=== PATIENT | female | born 1940 | race Caucasian/White ===

== ENCOUNTER 2023-08-10 09:43 | Outpatient (RCR) | payer MEDICARE, SELFPAY | END 2023-08-10 23:59 | disposition home or self-care (01) | LOC: ROT 09:43 | PROVIDERS: ATTENDING PHYSICIAN Internal Medicine | DX: I69.390 Apraxia following cerebral infarction (principal); I69.320 Aphasia following cerebral infarction; R41.89 Other symptoms and signs involving cognitive functions and awareness; I69.398 Other sequelae of cerebral infarction; Z73.6 Limitation of activities due to disability | CPT/HCPCS: 92507; 97530; 97535 ==

== ENCOUNTER 2023-09-07 07:22 | Outpatient (RCR) | payer MEDICARE, SELFPAY | END 2023-09-07 23:59 | disposition home or self-care (01) | LOC: ROT 07:22 | PROVIDERS: ATTENDING PHYSICIAN Internal Medicine | DX: I69.390 Apraxia following cerebral infarction (principal); I69.320 Aphasia following cerebral infarction; R41.89 Other symptoms and signs involving cognitive functions and awareness; Z73.6 Limitation of activities due to disability | CPT/HCPCS: 92507; 97530 ==

== ENCOUNTER → 2023-09-08 06:34 | Outpatient (REF) | payer MEDICARE, SELFPAY ==
[2023-09-08 07:35] LABS: % Eosinophils 4.4 % (0-6); % Immature Granulocytes 0.2 % (0-0.5); % Lymphocytes 31.3 % (20.5-51.1); % Monocytes 10.8 % (1.7-9.3); % Neutrophils 52.3 % (42.2-75.2); Absolute Eosinophils 0.2 10^3/uL (0-0.7); Absolute Lymphocytes 1.3 10^3/uL (1.2-3.4); Absolute Monocytes 0.4 10^3/uL (0.1-0.6); Absolute Neutrophils 2.1 10^3/uL (1.4-6.5); Hematocrit 43.3 % (37.0-47.0); Mean Corp Hgb Conc. 32.3 g/dL (33.0-37.0); Mean Corpuscular Hgb 29.4 pg (27.0-31.0); Mean Corpuscular Volume 90.8 fL (81.0-99.0); Mean Platelet Volume 11.6 fL (7.4-10.4); Nucleated Red Blood Cells % 0 %; Platelet Count 184 10^3/uL (130-400); Red Blood Cell Count 4.77 10^6/uL (4.20-5.40); Red Cell Dist. Width 13.3 % (11.5-14.5); White Blood Cell Count 4.1 10^3/uL (4.8-10.8)
[2023-09-08 08:14] LABS: ALT (SGPT) 13 U/L (0-35); AST (SGOT) 22 U/L (14-36); Albumin 4.3 g/dl (3.5-5.0); Alkaline Phosphatase 68 U/L (38-126); Blood Urea Nitrogen 18 mg/dl (7-17); Calcium 9.1 mg/dl (8.4-10.2); Carbon Dioxide 27 mmol/L (22-30); Chloride 105 mmol/L (98-107); Glucose 103 mg/dl (70-99); HDL Cholesterol 50 mg/dl; LDL Cholesterol, Calculated 92 mg/dl; Potassium 4.1 mmol/L (3.5-5.1); Sodium 138 mmol/L (135-145); Total Bilirubin 1.2 mg/dl (0.2-1.3); Total Cholesterol 178 mg/dl (50-199); Triglyceride 183 mg/dl (10-149); Very Low Density Lipoprotein 36 mg/dl (0-30); eGFR > 60.00
[2023-09-08 08:34] LABS: TSH Reflex To Free T4 2.79 uIU/ml (0.47-4.68)
== END ==
LOC: WDC 06:34
PROVIDERS: ATTENDING PHYSICIAN Family Medicine
DX: Z12.31 Encounter for screening mammogram for malignant neoplasm of breast (principal); Z86.73 Personal history of transient ischemic attack (TIA), and cerebral infarction without residual deficits; R53.83 Other fatigue; R73.01 Impaired fasting glucose; E78.2 Mixed hyperlipidemia; E03.9 Hypothyroidism, unspecified; E78.5 Hyperlipidemia, unspecified
CPT/HCPCS: 36415; 77063; 77067; 80053; 80061; 83036; 84443; 85025

== ENCOUNTER 2023-10-05 07:36 | Outpatient (RCR) | payer MEDICARE, SELFPAY | END 2023-10-05 23:59 | disposition home or self-care (01) | LOC: ROT 07:36 | PROVIDERS: ATTENDING PHYSICIAN Internal Medicine | DX: I69.328 Other speech and language deficits following cerebral infarction (principal); Z73.6 Limitation of activities due to disability; I69.390 Apraxia following cerebral infarction; I69.320 Aphasia following cerebral infarction | CPT/HCPCS: 92507; 97530; 97535 ==

== ENCOUNTER 2023-10-20 08:40 | Outpatient (RCR) | payer MEDICARE, SELFPAY | END 2023-10-20 23:59 | disposition home or self-care (01) | LOC: ROT 08:40 | PROVIDERS: ATTENDING PHYSICIAN Internal Medicine | DX: I69.328 Other speech and language deficits following cerebral infarction (principal); Z73.6 Limitation of activities due to disability; I69.390 Apraxia following cerebral infarction; I69.320 Aphasia following cerebral infarction; I69.318 Other symptoms and signs involving cognitive functions following cerebral infarction; I69.312 Visuospatial deficit and spatial neglect following cerebral infarction | CPT/HCPCS: 92507; 97530 ==

== ENCOUNTER → 2023-10-28 07:16 | Outpatient (REF) | payer MEDICARE, SELFPAY ==
[2023-10-28 08:09] LABS: % Basophils 0.9 % (0-2); % Eosinophils 5.1 % (0-6); % Immature Granulocytes 0.2 % (0-0.5); % Lymphocytes 23.7 % (20.5-51.1); % Neutrophils 60.1 % (42.2-75.2); Absolute Eosinophils 0.2 10^3/uL (0-0.7); Absolute Lymphocytes 1.1 10^3/uL (1.2-3.4); Absolute Monocytes 0.5 10^3/uL (0.1-0.6); Absolute Neutrophils 2.7 10^3/uL (1.4-6.5); Hematocrit 42.9 % (37.0-47.0); Hemoglobin 13.9 g/dL (12.0-16.0); Mean Corp Hgb Conc. 32.4 g/dL (33.0-37.0); Mean Corpuscular Hgb 29.3 pg (27.0-31.0); Mean Corpuscular Volume 90.3 fL (81.0-99.0); Mean Platelet Volume 10.8 fL (7.4-10.4); Nucleated Red Blood Cells % 0 %; Platelet Count 189 10^3/uL (130-400); Red Blood Cell Count 4.75 10^6/uL (4.20-5.40); Red Cell Dist. Width 13.5 % (11.5-14.5); White Blood Cell Count 4.5 10^3/uL (4.8-10.8)
[2023-10-28 09:45] LABS: ALT (SGPT) 12 U/L (0-35); AST (SGOT) 21 U/L (14-36); Albumin 4.3 g/dl (3.5-5.0); Alkaline Phosphatase 63 U/L (38-126); Blood Urea Nitrogen 16 mg/dl (7-17); Calcium 9.1 mg/dl (8.4-10.2); Carbon Dioxide 27 mmol/L (22-30); Chloride 105 mmol/L (98-107); Glucose 93 mg/dl (70-99); Sodium 137 mmol/L (135-145); Total Bilirubin 1.4 mg/dl (0.2-1.3); Total Protein 6.8 g/dl (6.3-8.2); eGFR > 60.00
[2023-10-28 09:57] LABS: Potassium 4.6 mmol/L (3.5-5.1)
== END ==
LOC: REG 07:16
PROVIDERS: ATTENDING PHYSICIAN Registered Nurse
DX: T78.3XXD Angioneurotic edema, subsequent encounter (principal); I10 Essential (primary) hypertension
CPT/HCPCS: 36415; 80053; 85025; 86160

== ENCOUNTER 2023-11-12 09:26 | Outpatient (RCR) | payer MEDICARE, SELFPAY | END 2023-11-24 14:37 | disposition home or self-care (01) | LOC: ROT 09:26 | PROVIDERS: ATTENDING PHYSICIAN Internal Medicine | DX: I69.328 Other speech and language deficits following cerebral infarction (principal); Z73.6 Limitation of activities due to disability; I69.390 Apraxia following cerebral infarction; I69.320 Aphasia following cerebral infarction; I69.318 Other symptoms and signs involving cognitive functions following cerebral infarction; I69.312 Visuospatial deficit and spatial neglect following cerebral infarction | CPT/HCPCS: 92507; 97535 ==

== ENCOUNTER → 2023-12-08 06:41 | Outpatient (REF) | payer MEDICARE, SELFPAY ==
[2023-12-08 07:30] LABS: % Basophils 0.9 % (0-2); % Eosinophils 5.5 % (0-6); % Immature Granulocytes 0.2 % (0-0.5); % Lymphocytes 29.5 % (20.5-51.1); % Monocytes 10.5 % (1.7-9.3); % Neutrophils 53.4 % (42.2-75.2); Absolute Eosinophils 0.2 10^3/uL (0-0.7); Absolute Lymphocytes 1.3 10^3/uL (1.2-3.4); Absolute Monocytes 0.5 10^3/uL (0.1-0.6); Absolute Neutrophils 2.4 10^3/uL (1.4-6.5); Hematocrit 42.6 % (37.0-47.0); Mean Corp Hgb Conc. 32.9 g/dL (33.0-37.0); Mean Corpuscular Volume 88.2 fL (81.0-99.0); Mean Platelet Volume 11.3 fL (7.4-10.4); Nucleated Red Blood Cells % 0 %; Platelet Count 167 10^3/uL (130-400); Red Blood Cell Count 4.83 10^6/uL (4.20-5.40); Red Cell Dist. Width 13.5 % (11.5-14.5); White Blood Cell Count 4.4 10^3/uL (4.8-10.8)
[2023-12-08 07:48] LABS: ALT (SGPT) 11 U/L (0-35); AST (SGOT) 21 U/L (14-36); Albumin 4.2 g/dl (3.5-5.0); Alkaline Phosphatase 65 U/L (38-126); Blood Urea Nitrogen 17 mg/dl (7-17); Calcium 9.4 mg/dl (8.4-10.2); Carbon Dioxide 27 mmol/L (22-30); Chloride 104 mmol/L (98-107); Glucose 97 mg/dl (70-99); HDL Cholesterol 49 mg/dl; LDL Cholesterol, Calculated 83 mg/dl; Potassium 3.9 mmol/L (3.5-5.1); Sodium 142 mmol/L (135-145); Total Bilirubin 1.4 mg/dl (0.2-1.3); Total Cholesterol 164 mg/dl (50-199); Total Protein 6.8 g/dl (6.3-8.2); Triglyceride 160 mg/dl (10-149); Very Low Density Lipoprotein 32 mg/dl (0-30); eGFR > 60.00
[2023-12-08 08:43] LABS: TSH Reflex To Free T4 3.43 uIU/ml (0.47-4.68)
== END ==
LOC: REG 06:41
PROVIDERS: ATTENDING PHYSICIAN Family Medicine
DX: T78.3XXD Angioneurotic edema, subsequent encounter (principal); R53.83 Other fatigue; R73.01 Impaired fasting glucose; E78.2 Mixed hyperlipidemia; E03.9 Hypothyroidism, unspecified
CPT/HCPCS: 36415; 80053; 80061; 83036; 84443; 85025

== ENCOUNTER → 2024-03-16 14:17 | Outpatient (REF) | payer MEDICARE, SELFPAY | LOC: RAD 14:17 | PROVIDERS: ATTENDING PHYSICIAN Nurse Practitioner Adult Health | DX: M79.662 Pain in left lower leg (principal) | CPT/HCPCS: 93971 ==

== ENCOUNTER → 2024-04-14 06:24 | Outpatient (REF) | payer MEDICARE, SELFPAY ==
[2024-04-14 07:04] LABS: % Basophils 1.4 % (0-2); % Immature Granulocytes 0.2 % (0-0.5); % Lymphocytes 29.6 % (20.5-51.1); % Monocytes 9.7 % (1.7-9.3); % Neutrophils 54.1 % (42.2-75.2); Absolute Basophils 0.1 10^3/uL (0-0.2); Absolute Eosinophils 0.3 10^3/uL (0-0.7); Absolute Lymphocytes 1.5 10^3/uL (1.2-3.4); Absolute Monocytes 0.5 10^3/uL (0.1-0.6); Absolute Neutrophils 2.7 10^3/uL (1.4-6.5); Hematocrit 45.4 % (37.0-47.0); Hemoglobin 14.8 g/dL (12.0-16.0); Mean Corp Hgb Conc. 32.6 g/dL (33.0-37.0); Mean Corpuscular Hgb 28.2 pg (27.0-31.0); Mean Corpuscular Volume 86.6 fL (81.0-99.0); Mean Platelet Volume 10.9 fL (7.4-10.4); Nucleated Red Blood Cells % 0 %; Platelet Count 203 10^3/uL (130-400); Red Blood Cell Count 5.24 10^6/uL (4.20-5.40)
[2024-04-14 07:41] LABS: ALT (SGPT) 15 U/L (0-35); AST (SGOT) 21 U/L (14-36); Albumin 4.6 g/dl (3.5-5.0); Alkaline Phosphatase 68 U/L (38-126); Blood Urea Nitrogen 18 mg/dl (7-17); Calcium 9.4 mg/dl (8.4-10.2); Carbon Dioxide 27 mmol/L (22-30); Chloride 102 mmol/L (98-107); Glucose 116 mg/dl (70-99); HDL Cholesterol 53 mg/dl; LDL Cholesterol, Calculated 96 mg/dl; Potassium 4.3 mmol/L (3.5-5.1); Sodium 141 mmol/L (135-145); Total Bilirubin 1.2 mg/dl (0.2-1.3); Total Cholesterol 187 mg/dl (50-199); Triglyceride 194 mg/dl (10-149); Very Low Density Lipoprotein 38 mg/dl (0-30); eGFR > 60.00
[2024-04-14 08:21] LABS: Glycohemoglobin (HgbA1c) 5.9 % (4.0-5.6)
[2024-04-14 08:24] LABS: Vitamin D, 25-OH*** 22.2 ng/mL (30-80)
[2024-04-14 08:38] LABS: TSH Reflex To Free T4 3.41 uIU/ml (0.47-4.68)
[2024-04-14 08:57] LABS: Vitamin B12 963 pg/ml (239-931)
== END ==
LOC: REG 06:24
PROVIDERS: ATTENDING PHYSICIAN Registered Nurse; FAMILY PHYSICIAN Family Medicine; REFERRING PHYSICIAN Nurse Practitioner Adult Health
DX: R73.01 Impaired fasting glucose (principal); E78.2 Mixed hyperlipidemia; I10 Essential (primary) hypertension; R53.83 Other fatigue; Z79.899 Other long term (current) drug therapy; Z13.29 Encounter for screening for other suspected endocrine disorder; Z51.81 Encounter for therapeutic drug level monitoring
CPT/HCPCS: 36415; 80053; 80061; 82306; 82607; 83036; 84443; 85025

== ENCOUNTER 2024-08-27 12:56 | Inpatient (IN) | payer MEDICARE, SELFPAY ==
[2024-08-24 21:46] LABS: Glucose - Point of Care 113 mg/dl (70-99)
[2024-08-24 21:47] VITALS: BP 186/94
--- NOTE | 2024-08-24 21:56 | ED.CVA ---
History of Present Illness
General
Chief Complaint: CVA/TIA Symptoms
Source: patient, records and spouse
Exam Limitations: clinical condition
Time Seen by Provider: 08/24/24 21:49
Nursing documentation reviewed up to this point in time: agreed with
Onset of Stroke Symptoms
Onset of symptoms known: Yes
Date of onset of symptoms: 08/24/24
Time of onset of symptoms: 20:30
History of Present Illness
History of Present Illness:
84-year-old female with a past medical history of hyperlipidemia, multiple prior strokes, hypothyroidism who presents to the emergency room with her for evaluation of speech disturbance. Patient cannot meaningfully participate in history
because she is having expressive aphasia. Her is at bedside and provides collateral history. She has a history of multiple prior strokes. She is on aspirin and Plavix. Tonight they were watching TV at around 8:30 PM and she had rather
abrupt onset of expressive aphasia. says that while she was trying to speak the words were gibberish. He says that she also seemed to be having issues with her balance. He did not note any facial droop, patient seems to deny any change in
vision. No weakness or numbness in the arms or the legs. notes that she has been dealing with pain in her back and is following with orthopedist with plan for a MRI upcoming; she has been taking tramadol for the past few days for her pain;
she did take a dose tonight. says that she took her dose either right before or shortly after onset of her speech issues--he is not really sure.
Past History
Past History
ED Past Medical History: CVA, GERD, Hypercholesterolemia, Hypothyroidism and Psychiatric
ED Past Surgical History: Appendectomy, Cholecystectomy and Gynecological
Social History
Tobacco: Non-smoker
Alcohol: Occasional
Drug: None
Personal:
Living: with family
Employment: Retired
Family History
Family History: Other (Noncontributory)
Review of Systems
Review of Systems
Unable to obtain full review of systems at this time due to: other (Aphasia)
All Other Systems: Not applicable
Phy Exam
Physical Exam
Physical Exam:
General: Awake, alert, anxious appearing
Head: Normocephalic, atraumatic
Eyes: Conjunctiva normal, EOMI, pupils equal round reactive to light bilaterally
Throat: Airway intact, handling secretions
Neck: Trachea midline, supple without meningismus
Lungs: Clear to auscultation bilaterally, no wheezing, rales, rhonchi
Heart: Tachycardia with regular rhythm, no murmurs, gallops, or rubs
Neuro: Cranial nerves intact, patient has fluent speech without dysarthria but is having expressive aphasia; motor and sensory intact in all extremities, no limb ataxia
Extremities: No edema in extremities, equal pulses in all extremities
Scores
NIH Stroke Score
Level of Consciousness: 0 - Alert
LOC Questions: 1-Answers one correctly
LOC Commands: 0-Performs both correctly
Best Horizontal Gaze: 0-Normal
Visual [place]: 0=Normal, no visual loss
Facial Palsy: 0=Normal, symmetrical
Motor - Right Arm: 0=No drift 10 seconds
Motor - Left Arm: 0=No drift 10 seconds
Motor - Right Le-No drift 5 seconds
Motor - Left Le-No drift 5 seconds
Limb Ataxia: 0-Absent
Sensation: 0-Normal
Best Language: 1-Mild aphasia
Dysarthria: 0-Normal
Extinction and Inattention: 0-No abnormality
Total Score:: 2
Thrombolytic Contraindication
Inclusion and Exclusion criteria reviewed: Yes
Reasons for NON-Tx with Thrombolytics ABSOLUTE Exclusions: Patient/family refused
Heart Failure Risk
Heart Failure Risk Score: Not Applicable
Heart Score for Chest Pain Patients
STEMI patient?: Not applicable
Withdrawal Assessment of Alcohol
Withdrawal Assessment Completed?: Not applicable
Course
Orders/Labs/Results
Orders:
Orders
02/12/25 21:44
Electrocardiogram (*1) Urgent
Reason for Study: Other
Other Reason for Exam: Possible Stroke
Bedside Glucose- Treatment ONCE
Cardiac Monitoring- Treatment ONCE
IV Insert/Care/Rem.- Treatment PRN
Vital Signs As Directed
Frequency: Other
Weight As Directed
Frequency: Once
Comment: ZERO STRETCHER SCALE FOR ACCURATE WEIGHT
O2 Therapy [RESP] Urgent
Titrate/Wean O2 to maintain O2 sat greater than (%): 93
Special Instructions: MAINTAIN CONTINUOUS O2 SATS > OR = 93%
08/24/24 21:45
CT HEAD STROKE ALERT W/o Cont Stat
Comment:
Reason For Exam: stroke alert
EKG- Treatment ONCE
08/24/24 21:49
Complete Blood Count/With Diff Urgent
Comprehensive Metabolic Panel Urgent
PTT Urgent
Prothrombin Time Urgent
Troponin I Urgent
08/24/24 21:50
CT HEAD/NECK ANG STROKE ALERT Urgent
Comment:
Reason For Exam: expressive aphasia
08/24/24 22:00
Flush (0.9% Sodium Chloride) [Flush (Nss)] See Dose Instructions IV PER PROTOCOL
08/24/24 22:27
Aspirin 325 mg PO NOW STA
08/24/24 23:18
Admit/Transfer Patient As Directed
Co-Sign Provider:
Level of Care: Observation services
Assign to:: Telemetry
Physician / Group: Nikolai
Diagnosis: Aphasia
Reason for Telemetry: Arrhythmia
Date to Stop Telemetry: 08/27/24
Time to Stop Telemetry: 11:00
PRN Pain Medication Management As Directed
May give lesser potent ordered pain med per pt: Yes
preference::
Protocol:: Medication orders for pain may be administered in a
manner that supports deferring to patient preference
when the pt is:
- Requesting an ordered lesser potent pain medication.
Least to most potent pain medications are defined
as: acetaminophen < NSAID < tramadol < opioids
(morphine, oxycodone, hydromorphone).
- Requesting a lesser dose of the same medication IF
ORDERED.
- Requesting a less intrusive route of administration
if both routes are prescribed by the provider (PO <
IV).
08/24/24 23:19
Code Status As Directed
Resuscitation Status: Do not resuscitate
Reached after discussion with pt or family/Healthcare POA: Yes
08/24/24 23:20
DNR Bracelet Application ONCE
08/24/24 23:47
Acetaminophen [Tylenol] 1,000 mg PO NOW STA
08/27/24 11:00
DC Protocol for Telemetry ONCE
Abnormal Lab Results
08/24/24 08/24/24
21:46 21:49
MCHC 32.7 L g/dL
(33.0-37.0)
MPV 10.5 H fL
(7.4-10.4)
Absolute Monos (auto) 0.7 H 10^3/uL
(0.1-0.6)
BUN 26 H mg/dl
(7-17)
Glucose 125 H mg/dl
(70-99)
Total Bilirubin 1.6 H mg/dl
(0.2-1.3)
POC Glucose 113 H mg/dl
(70-99)
08/24/24 21:49
08/24/24 21:49
Vital Signs
Initial and Last Documented VS:
Initial Vital Signs
Pulse Resp Pulse Ox
110 24 96
08/24/24 21:46 08/24/24 21:46 08/24/24 21:46
Last Documented Vital Signs
Pulse Resp BP Pulse Ox
96 15 176/86 91
08/25/24 00:15 08/25/24 00:15 08/25/24 00:04 08/25/24 00:15
MDM/Problems Addressed
Differential Diagnosis Includes:
Stroke/TIA, medication overdose/side effect, seizure
MDM/Problems Addressed:
84-year-old female presents to the ER for evaluation of speech disturbance that started at 8:30 PM similar to prior stroke; unclear whether she may have been given a dose of tramadol prior to onset. Hypertensive and tachycardic otherwise normal
vitals. Physical exam as above. She was initially called as a stroke alert and taken for a CT head as well as a CTA head and neck�CTs were called back by radiology as negative. Case was initially discussed with neurology who initially recommended
tenecteplase if patient and family agreeable. By the time patient returned from CT however her symptoms had improved and she was nearly back to baseline according to her . Certainly by the time of arrival back to the room symptoms not
disabling. I had a long discussion with the patient as well as her about the differential diagnosis. I explained that certainly her symptoms could be related to tramadol she had a dose before symptoms started or could be a small stroke or
TIA if symptoms are improving. I explained the risks and benefits of tenecteplase. They feel that risk outweighs benefit at this point and I tend to agree. For this reason we will forego treatment with tenecteplase�I did call neurology to discuss
and they agree that with improving symptoms and family hesitant to give this medication that is reasonable to forego treatment with it for the time being. Will treat with aspirin. Admit for serial neurologic exams and neurologic consultation.
Permissive hypertension for now in the setting of possible stroke. Case discussed with hospitalist.
Chronic conditions affecting care:
Hypertension, stroke
Acute Exacerbation and/or Progression of Chronic Illness:
Acutely hypertensive�permissive with possible stroke
*Radiology
Radiology exam reviewed: radiology read reviewed
*Pulse Oximetry
Patient hypoxic: no
*EKG
Interpreted by ED Provider?: Yes
Heart Rate: 102
Rate: tachycardiac
Rhythm: sinus and sinus tachycardia
[place]: left axis deviation
Interval: normal interval
QRS Pattern: left bundle branch block
Ischemia: no ischemia
*Critical Care Note
Total Time (30-74mins, 75-104mins- exclusive of procedures): Not Applicable
Data Reviewed
Review of Other/Old Records Reveals: Labs and Records
Source: patient, records and family
Prescriptions/Medications Considered But Not Given:
Considered treatment with tenecteplase as discussed above
Patient Management
Discussion with other providers: Hospitalist (Discussed with hospitalist), Practice Managers (Discussed with neurologist) and Radiologist (Discussed with radiologist)
Escalation/DeEscalation of care consider admission/obs:
Admission indicated
ED Attending Note
-
Portions of this chart may have been created with voice recognition software.� Occasional wrong word or��sound alike� substitutions may have occurred due to the inherent limitations of voice recognition software.
Discharge Plan
Departure
Patient Disposition: Admit
Date of Disposition: 08/24/24
Time of Disposition: 22:28
Admit to doctor: Alfred
Presentation/result/management discussed w/ accepting MD/DO: Hospitalist
Discharge Problem:
Expressive aphasia
Interventions
Interventions:
*Risk Screen - Suicide Last Done: 08/24/24 22:16
*General Assessment Last Done: 08/24/24 22:16
*Neglect/Abuse Screening Last Done: 08/24/24 22:16
ED- Fall Risk Assessment Last Done: 08/24/24 22:16
*ED COVID-19 Vaccine History Last Done: 08/24/24 22:16
*Nursing Disposition Last Done: 08/25/24 00:31
ED- Pulmonary Assessment Last Done: 08/24/24 22:16
ED- Neurological Assessment Last Done: 08/24/24 22:16
ED- Cardiac Assessment Last Done: 08/24/24 22:16
ED Swallowing Screen Last Done: 08/24/24 22:30
Discharge Date and Time
Discharge Date/Time: 08/25/24 00:31
[2024-08-24 21:57] LABS: % Basophils 0.7 % (0-2); % Eosinophils 2.6 % (0-6); % Immature Granulocytes 0.3 % (0-0.5); % Lymphocytes 20.7 % (20.5-51.1); % Neutrophils 66.7 % (42.2-75.2); Absolute Basophils 0.1 10^3/uL (0-0.2); Absolute Eosinophils 0.2 10^3/uL (0-0.7); Absolute Lymphocytes 1.5 10^3/uL (1.2-3.4); Absolute Monocytes 0.7 10^3/uL (0.1-0.6); Absolute Neutrophils 4.9 10^3/uL (1.4-6.5); Hematocrit 44.3 % (37.0-47.0); Hemoglobin 14.5 g/dL (12.0-16.0); Mean Corp Hgb Conc. 32.7 g/dL (33.0-37.0); Mean Corpuscular Hgb 28.9 pg (27.0-31.0); Mean Corpuscular Volume 88.2 fL (81.0-99.0); Mean Platelet Volume 10.5 fL (7.4-10.4); Nucleated Red Blood Cells % 0 %; Platelet Count 181 10^3/uL (130-400); Red Blood Cell Count 5.02 10^6/uL (4.20-5.40); Red Cell Dist. Width 13.9 % (11.5-14.5); White Blood Cell Count 7.3 10^3/uL (4.8-10.8)
[2024-08-24 22:09] LABS: INR 0.91; PT 12.8 Sec (11.4-14.6)
[2024-08-24 22:10] LABS: APTT 26.4 Sec (23.4-35.0)
[2024-08-24 22:17] LABS: ALT (SGPT) 14 U/L (0-35); AST (SGOT) 22 U/L (14-36); Albumin 4.4 g/dl (3.5-5.0); Alkaline Phosphatase 93 U/L (38-126); Blood Urea Nitrogen 26 mg/dl (7-17); Carbon Dioxide 26 mmol/L (22-30); Chloride 102 mmol/L (98-107); Estimated Creatinine Clearance 52 ml/min; Glucose 125 mg/dl (70-99); Sodium 137 mmol/L (135-145); Total Bilirubin 1.6 mg/dl (0.2-1.3); eGFR > 60.00
[2024-08-24 22:20] LABS: Troponin I < 0.012 ng/ml
[2024-08-24] MEDS: ASPIRIN 325 MG PO (22:32)
[2024-08-24 22:39] VITALS: BP 175/93
--- NOTE | 2024-08-24 22:40 | HPS.HSE ---
Family Physician
-
Family Physician:
Chief Complaint
-
Speech Abnormality
History of Present Illness
Patient is an 84y/o female past medical history of multiple prior strokes with residual speech abnormality, hypertension, hypothyroidism, and chronic back pain who presents with aphasia. Additional history provided by patient's at bedside.
At baseline patient has some stuttering of the speech. Today around 8:30 PM patient developed worsening speech difficulty which described as complete inability to speak. This was associated with difficulty with ambulating. notes
patient has been dealing with increased back pain. She received a trigger point injection earlier this week. She was also started on Tramadol as needed, and she did take a dose this evening. At present time notes her speech is almost back
to baseline. Patient is currently complaining of a mild headache. She denies any focal weakness.
Medical History
Past Medical History
Past Medical History: Reports Other
Additional Past Medical History:
Left Frontal and Occipital Lobe CVAs
Essential Hypertension
Hyperlipidemia
Hypothyroidism
Chronic Back Pain secondary to T11 Compression Fracture
GERD
GI Bleed
Anxiety
Past Surgical History: Reports Other
Additional Past Surgical History:
Cholecystectomy
Hysterectomy
Hemorrhoidectomy
Bilateral Cataract Extraction
Social History
Tobacco: Non-smoker
Personal:
Living: With Family
Employment: Retired
Family History
Family History: Not pertinent
Allergies / Home Medications
Allergies reflects when Allergies were last updated in [facility].
Home Medications with original date entered in [facility]
Allergy/Medication List:
Allergies
Allergy/AdvReac Type Severity Reaction Status Date / Time
amoxicillin Allergy THROAT Verified 04/15/23 12:47
SWELLS
Cephalosporins Allergy Vomiting Verified 04/15/23 12:47
clavulanic acid Allergy Unknown Verified 04/15/23 12:47
codeine [Codeine] Allergy VOMITING Verified 04/15/23 12:47
colesevelam [From WelChol] Allergy Unknown Verified 04/15/23 12:47
diphenhydramine HCl Allergy hallucinati Verified 04/15/23 12:47
[From Benadryl] ons
ezetimibe [From Zetia] Allergy Unknown Verified 04/15/23 12:47
hydromorphone Allergy vomiting Verified 04/15/23 12:47
severe
hydromorphone HCl Allergy severe Verified 04/15/23 12:47
[From Dilaudid] vomiting
meperidine Allergy vomiting Verified 04/15/23 12:47
morphine Allergy vomiting Verified 04/15/23 12:47
niacin Allergy Unknown Verified 04/15/23 12:47
[From Niaspan
Extended-Release]
Penicillins Allergy augmentin Verified 04/15/23 12:47
made
throat
swell
propoxyphene Allergy darvon-xiong Verified 04/15/23 12:47
ucinations
propoxyphene HCl Allergy hallucinations Verified 04/15/23 12:47
[From Darvon] and severe
vomiting
simvastatin [From Zocor] Allergy Unknown Verified 04/15/23 12:47
sulfamethoxazole Allergy Unknown Verified 04/15/23 12:47
[From Bactrim]
trimethoprim [From Bactrim] Allergy Unknown Verified 04/15/23 12:47
Home Medications
cyanocobalamin (vitamin B-12) 1,000 mcg tablet 1,000 mcg PO DAILY Supplement 11/12/22
lactobacillus combination no.4 3 billion cell capsule (Probiotic) 3,000 mmu cells PO DAILY Gastrointestinal issue 11/12/22
clopidogrel 75 mg tablet 75 mg PO DAILY Blood Clot Prevention/Tx 04/15/23
pantoprazole 40 mg tablet,delayed release 40 mg PO DAILY Gastrointestinal Issue 04/15/23
aspirin 81 mg chewable tablet 81 mg PO DAILY #90 tabs 10/07/23
amlodipine 10 mg tablet 10 mg PO DAILY 08/24/24
lidocaine 4 % topical patch 1 patch topical DAILY PRN back pain 08/24/24
lorazepam 0.5 mg tablet 0.5 mg PO HS PRN sleep 08/24/24
rosuvastatin 10 mg tablet 10 mg PO QPM 08/24/24
tramadol 50 mg tablet 50 mg PO Q8HPRN PRN pain 08/24/24
Review of Systems
-
Unable to obtain full review of systems at this time due to: Acuity
Physical Exam
Vital Signs
Vital Signs
Pulse Resp BP Pulse Ox
102 22 186/94 93
08/24/24 22:30 08/24/24 22:30 08/24/24 21:47 08/24/24 22:30
Physical Exam
General: Comfortable and Conversant
HEENT: Anicteric and Moist mucous membranes
Respiratory: Clear and Non Labored Respirations
Cardiac: S1/S2, Regular Rhythm and Murmur
GI: Soft and Non Tender
Rectal: Deferred by Provider
Musculoskeletal: No Clubbing, No Cyanosis and No Edema
Skin: Warm and Dry
Neuro: Awake, Alert, No Motor Deficits and Other (Speech is slow which reports is close to baseline)
Psych: Calm
Laboratory Results
-
08/24/24 21:49
08/24/24 21:49
Laboratory Results
PT 12.8 Sec (11.4-14.6) 08/24/24 21:49
INR 0.91 08/24/24 21:49
APTT 26.4 Sec (23.4-35.0) 08/24/24 21:49
Total Bilirubin 1.6 mg/dl (0.2-1.3) H 08/24/24 21:49
AST 22 U/L (14-36) 08/24/24 21:49
ALT 14 U/L (0-35) 08/24/24 21:49
Alkaline Phosphatase 93 U/L (38-126) 08/24/24 21:49
Troponin I < 0.012 ng/ml 08/24/24 21:49
Data Reviewed
-
CT Scan: Report Reviewed by me
Lab Data: Labs Reviewed by me
Impression/Plan
-
Speech Abnormality, possibly TIA/CVA vs TME due Tramadol vs Recrudescence of prior stroke
-Consult Neurology
-Check Brain MRI
-Continue Aspirin and Plavix as prior to admission - Consider checking Verify Now assay
-Consult PT/OT and Speech
Essential Hypertension
-BP initially running high, but has improved
-Continue amlodipine
Hyperlipidemia
-Continue Crestor
Hypothyroidism
-Continue levothyroxine
Acute on Chronic Back Pain
-Patient scheduled for MRI tomorrow (Aug 24 at 8pm)
GERD
-Continue Protonix
Anxiety / Insomnia
-Continue lorazepam
Hx Left Frontal and Occipital Lobe CVAs
DVT proph: SCDs
Code Status: DNR
[2024-08-24 23:00] VITALS: BP 107/92
--- NOTE | 2024-08-24 23:31 | W.PN.UPDATE ---
Update Note
Progress Note Update
This is an addendum to the H&P written by Nerissa Stearns in 08/24/2024. Patient seen examined independently with PA.
84-year-old female past medical history of multiple CVAs with residual memory loss and speech difficulty,, hypertension, left bundle branch for, hyperlipidemia, hypothyroidism, chronic back pain, T11 compression fracture presenting with acute
aphasia starting at 30 p.m. today. Words were gibberish. Patient with chronic balance difficulty low bit worse than usual. No facial droop or vision changes or numbness or tingling or focal weakness. She has been having headache.
Has been having chronic back pain for which she is following orthopedics with upcoming MRI scheduled. Has been taking tramadol for the past few days.
Patient's blood pressure [address] head and neck shows cervical carotid plaque formation with 65 to 70% stenosis of the left carotid bulb. Labs unremarkable.
Presentation concerning for TIA versus CVA versus stroke recrudescence versus metabolic encephalopathy secondary to recently added tramadol. Blood pressures improved spontaneously.
Hold tramadol. Check MRI brain. Permissive hypertension. Neurology consulted. Already on aspirin and Plavix. Consider checking verify aspirin and Plavix assay.
[2024-08-24] MEDS: TYLENOL 1000 MG PO (23:56)
[2024-08-25] VITALS (9 sets, daily range): BP systolic 113–177; BP diastolic 59–109; PULSE 80; O2SAT 92; BMI 28.0
--- NOTE | 2024-08-25 01:00 | PTCARENOTE ---
Patient arrived on unit via stretcher. Patient A&Ox3. Ambulated to bed from stretcher. Oriented to unit. Call carrasquillo within reach.
[2024-08-25 06:22] LABS: Hematocrit 40.2 % (37.0-47.0); Hemoglobin 13.2 g/dL (12.0-16.0); Mean Corp Hgb Conc. 32.8 g/dL (33.0-37.0); Mean Corpuscular Hgb 29.1 pg (27.0-31.0); Mean Corpuscular Volume 88.5 fL (81.0-99.0); Mean Platelet Volume 11.5 fL (7.4-10.4); Platelet Count 173 10^3/uL (130-400); Red Blood Cell Count 4.54 10^6/uL (4.20-5.40); Red Cell Dist. Width 13.9 % (11.5-14.5); White Blood Cell Count 5.9 10^3/uL (4.8-10.8)
[2024-08-25 06:59] LABS: ALT (SGPT) 11 U/L (0-35); AST (SGOT) 19 U/L (14-36); Albumin 3.7 g/dl (3.5-5.0); Alkaline Phosphatase 77 U/L (38-126); Blood Urea Nitrogen 20 mg/dl (7-17); Calcium 8.6 mg/dl (8.4-10.2); Carbon Dioxide 25 mmol/L (22-30); Chloride 104 mmol/L (98-107); Estimated Creatinine Clearance 59 ml/min; Glucose 104 mg/dl (70-99); HDL Cholesterol 47 mg/dl; LDL Cholesterol, Calculated 74 mg/dl; Magnesium 2.1 mg/dl (1.6-2.3); Potassium 4.1 mmol/L (3.5-5.1); Sodium 137 mmol/L (135-145); Total Bilirubin 1.5 mg/dl (0.2-1.3); Total Cholesterol 141 mg/dl (50-199); Triglyceride 103 mg/dl (10-149); Very Low Density Lipoprotein 20 mg/dl (0-30); eGFR > 60.00
[2024-08-25 07:18] LABS: TSH Reflex To Free T4 3.47 uIU/ml (0.47-4.68)
[2024-08-25] MEDS: PLAVIX 75 MG PO (08:49)
[2024-08-25] MEDS: LOW STRENGTH ASPIRIN 81 MG PO (08:49)
[2024-08-25] MEDS: PROTONIX 40 MG PO ×2 (08:49→14:41)
[2024-08-25] MEDS: NORVASC 10 MG PO (08:49)
[2024-08-25] MEDS: VITAMIN B-12 1000 MCG PO (08:49)
[2024-08-25 09:43] LABS: Glycohemoglobin (HgbA1c) 5.8 % (4.0-5.6)
--- NOTE | 2024-08-25 10:15 | CON.NEURO ---
Neuro Assessment/Plan
Assessment
Head CT imgs rev'd, no bleed, +chronic left occipital stroke
CTA head/neck showing left carotid bulb 65-70% stenosis
HDL 38, LDL 96
Plan
clinically this is a TIA due to symptomatic left carotid
will get MRI though if a stroke is seen does not change clinical management
continue ASA 81, plavix 75
rosuvastatin 10-->40
patient willing to consider carotid intervention, appears likely that she will live for 3-5 more years, so vascular surgery eval.
Consultation
Order
Date of Consultation: 08/25/24
Requesting Provider: Gato Muñoz Jr
Reason for Consult: Stroke
Subjective/Objective
Subjective Data
Date of Service: August 25, 2024
84-year-old female past medical history of multiple CVAs with residual memory loss and speech difficulty,, hypertension, left bundle branch for, hyperlipidemia, hypothyroidism, chronic back pain, T11 compression fracture presenting with acute
aphasia starting at 30 p.m. today. Words were gibberish. Patient with chronic balance difficulty low bit worse than usual. No facial droop or vision changes or numbness or tingling or focal weakness. She has been having headache.
last evening I spoke with ED physician Dr Muñoz over the phone during stroke alert. the patient severely aphasic, otherwise non-focal, concern for stroke and with disabling deficits I believed the patient to be a candidate for TNK. fortunately, the
patient rapidly improved, and after Head CT was essentially back to normal, so TNK ended up being unnecessary.
This morning, the patient feels at her baseline.
Objective Data
Vital Signs
Temp Pulse Resp BP Pulse Ox
36.9 C 79 16 152/80 94
08/25/24 08:07 08/25/24 08:49 08/25/24 08:07 08/25/24 08:49 08/25/24 08:07
Lab Results
08/25/24 05:26
08/25/24 05:26
PT 12.8 Sec (11.4-14.6) 08/24/24 21:49
INR 0.91 08/24/24 21:49
APTT 26.4 Sec (23.4-35.0) 08/24/24 21:49
Sodium 137 mmol/L (135-145) 08/25/24 05:
Potassium 4.1 mmol/L (3.5-5.1) 08/25/24 05:
BUN 20 mg/dl (7-17) H 08/25/24 05:
Glucose 104 mg/dl (70-99) H 08/25/24 05:
Calcium 8.6 mg/dl (8.4-10.2) 08/25/24 05:
LDL Cholesterol, Calc 74 mg/dl 08/25/24 05:
Patient Allergies
amoxicillin Allergy (Verified 04/15/23 12:47)
THROAT SWELLS
Cephalosporins Allergy (Verified 04/15/23 12:47)
Vomiting
clavulanic acid Allergy (Verified 04/15/23 12:47)
Unknown
codeine [Codeine] Allergy (Verified 04/15/23 12:47)
VOMITING
colesevelam [From WelChol] Allergy (Verified 04/15/23 12:47)
Unknown
diphenhydramine HCl [From Benadryl] Allergy (Verified 04/15/23 12:47)
hallucinations
ezetimibe [From Zetia] Allergy (Verified 04/15/23 12:47)
Unknown
hydromorphone Allergy (Verified 04/15/23 12:47)
vomiting severe
hydromorphone HCl [From Dilaudid] Allergy (Verified 04/15/23 12:47)
severe vomiting
meperidine Allergy (Verified 04/15/23 12:47)
vomiting
morphine Allergy (Verified 04/15/23 12:47)
vomiting
niacin [From Niaspan Extended-Release] Allergy (Verified 04/15/23 12:47)
Unknown
Penicillins Allergy (Verified 04/15/23 12:47)
augmentin made throat swell
propoxyphene Allergy (Verified 04/15/23 12:47)
darvon-hallucinations
propoxyphene HCl [From Darvon] Allergy (Verified 04/15/23 12:47)
hallucinations and severe vomiting
simvastatin [From Zocor] Allergy (Verified 04/15/23 12:47)
Unknown
sulfamethoxazole [From Bactrim] Allergy (Verified 04/15/23 12:47)
Unknown
trimethoprim [From Bactrim] Allergy (Verified 04/15/23 12:47)
Unknown
Physical Exam
-
AAOx3, speech clear, language intact, pleasant and cooperative
VFF, EOMI, face symmetric
full strength b/l UE/LE, normal bulk/tone
sensation intact to touch/temp
Medications
-
Active Medications
Generic Name Dose Route Start Last Admin
Trade Name Freq PRN Reason Stop Dose Admin
Acetaminophen 650 mg 08/25/24 01:11
Acetaminophen 650 Mg Rectal Suppository RECTAL 09/22/24 01:10
Q4HPRN PRN
BARROW, mild pain, or temp >100.4F
Acetaminophen 650 mg 08/25/24 01:11
Acetaminophen 325 Mg Tablet PO 09/22/24 01:10
Q4HPRN PRN
BARROW, mild pain, or temp >100.4F
Amlodipine Besylate 10 mg 08/25/24 08:00 08/25/24 08:49
Amlodipine 10 Mg Tablet PO 09/22/24 07:59 10 mg
DAILY ALEN Administration
Aspirin 81 mg 08/25/24 08:00 08/25/24 08:49
Aspirin 81 Mg Chewable Tablet PO 09/22/24 07:59 81 mg
DAILY ALEN Administration
Clopidogrel Bisulfate 75 mg 08/25/24 08:00 08/25/24 08:49
Clopidogrel 75 Mg Tablet PO 09/22/24 07:59 75 mg
DAILY ALEN Administration
Cyanocobalamin 1,000 mcg 08/25/24 08:00 08/25/24 08:49
Cyanocobalamin 1,000 Mcg Tablet PO 09/22/24 07:59 1,000 mcg
DAILY ALEN Administration
Lidocaine 1 patch 08/25/24 01:11
Lidocaine 4% Topical Patch TOPICAL 09/22/24 01:10
DAILY PRN
back pain
Protocol
Pantoprazole Sodium 40 mg 08/25/24 08:00 08/25/24 08:49
Pantoprazole 40 Mg Delayed Release Tablet PO 09/22/24 07:59 40 mg
DAILY ALEN Administration
Rosuvastatin Calcium 40 mg 08/25/24 18:00
Rosuvastatin (Crestor) 10 Mg Tablet PO 09/22/24 17:59
QPM ALEN
Sodium Chloride 0 flush 08/25/24 02:00
Sodium Chloride 0.9% (Flush) Syringe IV 09/22/24 01:59
PER PROTOCOL ALEN
Home Medications
�Medication �Instructions �Recorded
cyanocobalamin (vitamin B-12) 1,000 mcg PO DAILY Supplement 11/12/22
1,000 mcg tablet
lactobacillus combination no.4 3 3,000 mmu cells PO DAILY 11/12/22
billion cell capsule (Probiotic) Gastrointestinal issue
clopidogrel 75 mg tablet 75 mg PO DAILY Blood Clot 04/15/23
Prevention/Tx
pantoprazole 40 mg tablet,delayed 40 mg PO DAILY Gastrointestinal 04/15/23
release Issue
aspirin 81 mg chewable tablet 81 mg PO DAILY #90 tabs 04/18/23
amlodipine 10 mg tablet 10 mg PO DAILY 08/24/24
lidocaine 4 % topical patch 1 patch topical DAILY PRN back pain 02/12/25
lorazepam 0.5 mg tablet 0.5 mg PO HS PRN sleep 08/24/24
rosuvastatin 10 mg tablet 10 mg PO QPM 08/24/24
tramadol 50 mg tablet 50 mg PO Q8HPRN PRN pain 08/24/24
--- NOTE | 2024-08-25 10:25 | CM ---
Addendum entered by Rowena Madera RN 08/25/24 10:35:
Correction: patient's pharmacy of choice is [facility].
Original Note:
Reviewed the chart notes and spoke with the patient at the bedside. The patient is admitted under observational status. The PORTER letter was provided and explained. The patient had no questions with regards to the letter.
The patient resides with her spouse in a two story home with two steps to enter. The patient has a rolling walker. The patient denies VN or SNF in the past. The patient confirmed her pharmacy of choice is [facility]. CM continues to be available
to patient/family and is monitoring medical plan for needs at discharge.
Plan: Discharge plans will depend on the patient's progress.
--- NOTE | 2024-08-25 11:19 | W.PN.UPDATE ---
Addendum entered and electronically signed by Remy Chaparro MD 08/26/24 10:55:
Note - difficulty getting MRI (patient did not tolerate). I defer to neurology re: need for MRI. Discussed with neurologist via [employer] yesterday - he felt that MRI was not necessary and was recommending left carotid revascularization
regardless. Therefore will proceed as planned.
Original Note:
Update Note
Progress Note Update
Seen and examined with ANIMAL HANDLER's. Full consultation to follow. 84-year-old female with history of prior stroke in 2022 (posterior left frontal lobe and posterior cortical hampton matter of the left occipital lobe). We were not involved at that point.
Now patient with new onset of symptoms last night with per her 's description of expressive aphasia. Her speech had never returned to baseline following her prior stroke she always always had difficulty with speech, and he also notes memory
issues. The memory issues may or may not have predated the prior stroke. However, the expressive aphasia event yesterday was new. Patient denies any episodes of unilateral numbness or weakness or amaurosis. Cardiovascular risk factors include
hypertension hyperlipidemia. She denies coronary artery disease, notes very remote history of minimal tobacco use.
On exam/she is awake and alert. Her speech is fluent but somewhat slow in general. She does answer questions appropriately. Moves all extremities well with reasonable strength 5 out of 5 equally throughout bilateral upper and lower extremities.
Palpable upper extremity radial and pedal pulses bilaterally.
CT angiogram reviewed. Significant left carotid bulb stenosis with irregular appearing plaque, but chronic calcified. No significant soft plaque but it does reduce the diameter/lumen fairly. Does not look significantly different compared to 2022
scan.
Plan/symptomatic left carotid artery stenosis. Unclear if she has had an infarct. Or whether this is a TIA event. MRI pending. Neurology feels that this was a symptomatic event related to the left carotid stenosis. Discussed this all with the
patient and her at the bedside. Discussed therefore recommendation for revascularization. Discussed modalities of recommendation. Based on her anatomy, I am recommending left carotid endarterectomy. Discussed procedure at length.
Discussed anticipated recovery/outcomes. Discussed risk of the procedure including but not limited to bleeding, infection, cardiac complication/ID, cranial nerve injury, stroke (in the symptomatic setting 2 to 3%). She understands all wishes to
discuss further with her family. In addition I wish to wait for MRI to be done so that we can determine best timing. If MRI does demonstrate acute infarct, likely would favor waiting till Thursday08/29/24. Otherwise we will consider for tomorrow.
--- NOTE | 2024-08-25 11:19 | CON.VAS ---
Consultation
Consultation Request
Date/Time Consultation Performed: 08/25/24
Requesting Provider: Hospitalist
Performing Provider: Abigail Nguyễn, SPECIALTY TRIMMER-C for Remy Chaparro MD
Reason for Consultation: Carotid stenosis in setting of suspected stroke
Medical History
-
Chief Complaint: Aphasia
History of Present Illness:
This is an 84-year-old right handed female with significant past medical history of prior strokes in 2022 (posterior left frontal lobe and posterior cortical hampton matter of the left occipital lobe), residual speech abnormality, hypertension,
hypothyroidism, and chronic back pain who presented to [facility] on 08/24/24 when her noted patient to be aphasiac with gait abnormality. Upon arrival stroke alert was activated and pt was going to receive TNK but while in CT
scanner pt had complete resolution of symptoms and TNK was not administered. Patient cannot recall episode but does feel she is at baseline. is also at bedside and does endorse that patient's speech had never returned to baseline following
her prior stroke she always always had difficulty with speech, and he also notes memory issues. The memory issues may or may not have predated the prior stroke. However, the expressive aphasia event yesterday was new and a deviation from her
baseline. Patient denies any episodes of unilateral numbness or weakness or amaurosis. Cardiovascular risk factors include hypertension hyperlipidemia. She denies coronary artery disease, notes very remote history of minimal tobacco use.
Past Medical History
Past Medical History: CVA (Left Frontal and Occipital Lobe), GERD, HTN, Hypothyroidism, Psychiatric (Anxiety) and Other (Hyperlipidemia, Chronic Back Pain secondary to T11 Compression Fracture, GI bleed)
Past Surgical History: Cholecystectomy, Gynecological (Hysterectomy) and Other (Hemorrhoidectomy, cataract extraction)
Social History
Tobacco: Non-Smoker
Personal:
Allergies / Home Medications
Allergy/AdvReac Type Severity Reaction Status Date / Time
amoxicillin Allergy THROAT Verified 04/15/23 12:47
SWELLS
Cephalosporins Allergy Vomiting Verified 04/15/23 12:47
clavulanic acid Allergy Unknown Verified 04/15/23 12:47
codeine [Codeine] Allergy VOMITING Verified 04/15/23 12:47
colesevelam [From WelChol] Allergy Unknown Verified 04/15/23 12:47
diphenhydramine HCl Allergy hallucinati Verified 04/15/23 12:47
[From Benadryl] ons
ezetimibe [From Zetia] Allergy Unknown Verified 04/15/23 12:47
hydromorphone Allergy vomiting Verified 04/15/23 12:47
severe
hydromorphone HCl Allergy severe Verified 04/15/23 12:47
[From Dilaudid] vomiting
meperidine Allergy vomiting Verified 04/15/23 12:47
morphine Allergy vomiting Verified 04/15/23 12:47
niacin Allergy Unknown Verified 04/15/23 12:47
[From Niaspan
Extended-Release]
Penicillins Allergy augmentin Verified 04/15/23 12:47
made
throat
swell
propoxyphene Allergy darvon-xiong Verified 04/15/23 12:47
ucinations
propoxyphene HCl Allergy hallucinations Verified 04/15/23 12:47
[From Darvon] and severe
vomiting
simvastatin [From Zocor] Allergy Unknown Verified 04/15/23 12:47
sulfamethoxazole Allergy Unknown Verified 04/15/23 12:47
[From Bactrim]
trimethoprim [From Bactrim] Allergy Unknown Verified 04/15/23 12:47
�Medication �Instructions �Recorded �Confirmed �Type
cyanocobalamin (vitamin B-12) 1,000 mcg PO DAILY Supplement 11/12/22 08/24/24 History
1,000 mcg tablet
lactobacillus combination no.4 3 3,000 mmu cells PO DAILY probiotic 11/12/22 08/24/24 History
billion cell capsule (Probiotic)
clopidogrel 75 mg tablet 75 mg PO DAILY Blood Clot 04/15/23 08/24/24 History
Prevention/Tx
pantoprazole 40 mg tablet,delayed 40 mg PO DAILY Gastrointestinal 04/15/23 08/24/24 History
release Issue
aspirin 81 mg chewable tablet 81 mg PO DAILY #90 tabs 04/18/23 08/24/24 Rx
amlodipine 10 mg tablet 10 mg PO DAILY Blood Pressure 08/24/24 08/24/24 History
lidocaine 4 % topical patch 1 patch topical DAILY PRN back pain 08/24/24 08/24/24 History
lorazepam 0.5 mg tablet 0.5 mg PO HS PRN sleep 08/24/24 08/24/24 History
rosuvastatin 10 mg tablet 10 mg PO QPM High Cholesterol 08/24/24 08/24/24 History
tramadol 50 mg tablet 50 mg PO Q8HPRN PRN pain 08/24/24 08/24/24 History
Review of Systems
-
History Source: Patient
Constitutional: Reports No Symptoms
EENT: Reports No Symptoms
Respiratory: Reports No Symptoms
Cardiac: Reports No Symptoms
Abdomen/GI: Reports No Symptoms
: Reports No Symptoms
Musculoskeletal: Reports No Symptoms
Skin: Reports No Symptoms
Neurological: Reports Other (Transitive visual but has now resolved, does endorse baseline memory loss particularly with short-term memory)
Endocrine: Reports No Symptoms
Physical Exam
Vital Signs
Temp Pulse Resp BP Pulse Ox
98.8 F 86 16 130/83 93
08/25/24 11:12 08/25/24 11:12 08/25/24 11:12 08/25/24 11:12 08/25/24 11:12
Lab Results
08/25/24 05:26
08/25/24 05:26
Troponin I < 0.012 ng/ml 08/24/24 21:49
Physical Exam
General: No Apparent Distress and Comfortable
HEENT: Normocephalic, Anicteric and Atraumatic
Respiratory: Non Labored Respirations
Cardiac: Negative JVD
GI: Soft, Non Tender and Non Distended
Musculoskeletal: No Edema
Skin: Warm
Neuro: AO x 3
Pulses: Bilateral Dorsalis Pedis: +2 and Bilateral Posterior Tibial: +2
Assessment / Plan
-
Assessment: 84 year old female with symptomatic left carotid artery stenosis.
Plan:
MRI of bainr pending, unclear if she has had a new infarct or whether this is a TIA event. Neurology feels that this was a symptomatic event related to the left carotid stenosis. Dr. Chaparro at bedside and discussed recommendation for
revascularization including modalities of recommendation. Dr. Chaparro is recommending left carotid endarterectomy and discussed procedure at length. Discussed anticipated recovery/outcomes. Discussed risk of the procedure including but not limited to
bleeding, infection, cardiac complication/CT, cranial nerve injury, stroke (in the symptomatic setting 2 to 3%). Patient and wishes to discuss further with their family. In addition prefer to have MRI done so that we can determine best
timing. If MRI does demonstrate acute infarct, likely would favor waiting till Thursday08/29/24. Otherwise we will consider for tomorrow.
--- NOTE | 2024-08-25 11:38 | W.PN.HOSP.TC ---
Today's Communication/Plan
-
Assessment / Plan
Assessment / Plan
NAD continues to aphasia is baseline for her
Scleral Anicteric
MMM
No JVD
CTABL
RRR, S1/S2
Soft, NT, ND, BS+
Warm, Dry
AAOx3 5/5 motor strength in all upper and lower extremity, full sensations intact
Calm
TIA versus CVA versus carotid artery stenosis
MRI pending
Neurology following
CTA head and neck demonstrating 65 to 70% stenosis,
Vascular surgery consulted
Continue aspirin Plavix
Hypertension
Continue antihypertensive
Hyperlipidemia
Continue crestor
Hypothyroidism
-Continue levothyroxine
Acute on Chronic Back Pain
-Patient scheduled for MRI tomorrow (Aug 24 at 8pm)
GERD
-Continue Protonix
Prediabetic with A1c of 5.8
-Monitor sugars, dietary/lifestyle modification
DNR
Anticipated Discharge: > 48 hours
Subjective/Interval History
-
Date of Service: August 25, 2024
Seen and examined. No new complaints. No acute overnight events.
Sitting in bedside chair
Believe symptoms to have improved a little
Objective Data
-
Labs:
Laboratory Results
08/25/24 08/25/24
05:26 11:37
WBC 5.9
Hgb 13.2
Hct 40.2
Plt Count 173
Sodium 137 Pending
Potassium 4.1 Pending
Chloride 104 Pending
Carbon Dioxide 25 Pending
BUN 20 H Pending
Creatinine 0.7 Pending
Glucose 104 H Pending
Calcium 8.6 Pending
Total Bilirubin 1.5 H
AST 19
ALT 11
Alkaline Phosphatase 77
Vital Signs:
Vital Signs
Temp Pulse Resp BP Pulse Ox
98.8 F 86 16 130/83 93
08/25/24 11:12 08/25/24 11:12 08/25/24 11:12 08/25/24 11:12 08/25/24 11:12
I&O
08/24/24 08/25/24 08/26/24
06:59 06:59 06:59
Intake Total 240 / 240
Balance 240 / 240
[2024-08-25 12:58] LABS: Blood Urea Nitrogen 17 mg/dl (7-17); Carbon Dioxide 25 mmol/L (22-30); Chloride 100 mmol/L (98-107); Estimated Creatinine Clearance 59 ml/min; Glucose 111 mg/dl (70-99); Sodium 136 mmol/L (135-145); eGFR > 60.00
[2024-08-25] MEDS: TYLENOL 1000 MG PO (14:41)
[2024-08-25] MEDS: TORADOL 15 MG IV (14:41)
--- NOTE | 2024-08-25 16:30 | PTCARENOTE ---
pt unable to tolerate Brain MRI this am due to back pain. MRI staff noted that pt was yelling and ripping off face equipment, pt returned to unit. Dr. Alberto notified on the floor, this nurse was instructed to reach out to hospitalist to have
something ordered for pain management and reattempt MRI. Dr. Kalani Garcia notified, ordered 1000mg PO Tylenol and IV Toradol. pt given meds and resent to MRI. Pt sent back to floor, MRI stated that pt was yelling again and refused to have MRI completed.
Pt returned to floor. Pt family at the bedside. family requesting 'twilight sedation' so MRI could be completed. this nurse reached out to Dr. Alberto again to notified him about family request and that pt was unable to complete MRI for the second
attempt. Dr. Alberto states' pt does not absolutely need MRI, will defer to neuro. neuro said that she does not absolutely need it. no need for US, CT scan more specific.' family updated at the beside. plan for prestressed concrete laborer at 1230 08/26
[2024-08-25] MEDS: CRESTOR 40 MG PO (17:30)
[2024-08-26] VITALS (23 sets, daily range): BP systolic 98–174; BP diastolic 53–141
--- NOTE | 2024-08-26 00:08 | PTCARENOTE ---
Patient refused midnight VS and neurochecks. Patient stated 'it's against my sabianism.' When asked for further clarification, patient told this RN 'leave my room now.' Attempted to educate patient on the importance of having vs taken and neurochecks
assessed. Patient reported that she was upset about having a roommate and worried that she was going to 'catch what she has.' Educated patient that her roommate was not contagious and that patients are screened before being placed in semi-private
rooms. Patient replied 'I've heard that before, just get out of here.' PCT attempted to obtain VS again, patient continues to refuse. Plan of care ongoing.
[2024-08-26] MEDS: BACTROBAN 2% OINTMENT 1 APPLIC NASAL (05:42)
[2024-08-26] MEDS: SYNTHROID 50 MCG PO (05:42)
[2024-08-26 06:03] LABS: Hematocrit 39.7 % (37.0-47.0); Hemoglobin 13.1 g/dL (12.0-16.0); Mean Corpuscular Hgb 28.7 pg (27.0-31.0); Mean Corpuscular Volume 87.1 fL (81.0-99.0); Mean Platelet Volume 10.9 fL (7.4-10.4); Platelet Count 157 10^3/uL (130-400); Red Blood Cell Count 4.56 10^6/uL (4.20-5.40); Red Cell Dist. Width 13.8 % (11.5-14.5); White Blood Cell Count 5.2 10^3/uL (4.8-10.8)
[2024-08-26] MEDS: LOW STRENGTH ASPIRIN 81 MG PO (07:51)
[2024-08-26] MEDS: PROTONIX 40 MG PO (07:52)
[2024-08-26] MEDS: NORVASC 10 MG PO (07:52)
[2024-08-26] MEDS: PLAVIX 75 MG PO (07:52)
[2024-08-26] MEDS: VITAMIN B-12 1000 MCG PO (07:52)
[2024-08-26] MEDS: VANCOCIN 200 IV (09:54)
--- NOTE | 2024-08-26 10:05 | TRANSFER ---
Patient transferred to cathode ray tube assembler on tele monitor, awake and alert. Upon arrival, BP 155/96, HR 98, Pulse Ox 92% on RA, RR 16. Pt appears to be confused at times, states memory isn't always great. Dr Chaparro spoke to for consent as well as
patient. Anesthesia in to see patient. Vancomycin IV started via right IV site.
--- NOTE | 2024-08-26 10:27 | W.SUR.PREOP ---
Pre-Operative Surgical Note
-
I have examined this patient prior to the performance of the scheduled procedure.
The patient's condition is unchanged from the time of the current History and
Physical and the patient is able to undergo the scheduled procedure.
Reviewed procedure with patient and her again ( came to bedside preop area). Patient alert and oriented at least times 2 (she got the date, though she got the year wrong - didn't really know). Given not complete orientation and
memory issues in terms of full recall of procedure , consent obtained from .
--- NOTE | 2024-08-26 11:35 | W.PN.HOSP.TC ---
Today's Communication/Plan
-
Assessment / Plan
Assessment / Plan
NAD continues to aphasia is baseline for her
Scleral Anicteric
MMM
No JVD
CTABL
RRR, S1/S2
Soft, NT, ND, BS+
Warm, Dry
AAOx3 5/5 motor strength in all upper and lower extremity, full sensations intact
Calm
Carotid artery stenosis, symptomatic, 65 to 70%
MRI unable to lie flat/complete due to pain in her back
Neurology following recommended carotid artery intervention
Continue DAPT high intensity statin
Vascular surgery planning for endarterectomy
Hypertension
Continue antihypertensive
Hyperlipidemia
Continue crestor
Hypothyroidism
-Continue levothyroxine
Acute on Chronic Back Pain
-Patient scheduled for MRI tomorrow (Aug 24 at 8pm)
GERD
-Continue Protonix
Prediabetic with A1c of 5.8
-Monitor sugars, dietary/lifestyle modification
DNR
Anticipated Discharge: 24 - 48 hours
Subjective/Interval History
-
Date of Service: August 26, 2024
She was seen and evaluated in the vascular lab holding area
No new complaints
Scared for undergoing this procedure but understands why she needs
Objective Data
-
Labs:
Laboratory Results
08/26/24
05:40
WBC 5.2
Hgb 13.1
Hct 39.7
Plt Count 157
Vital Signs:
Vital Signs
Temp Pulse Resp BP Pulse Ox
98.4 F 81 17 171/76 96
08/26/24 07:25 08/26/24 07:52 08/26/24 07:25 08/26/24 07:52 08/26/24 07:25
I&O
08/25/24 08/26/24 08/27/24
06:59 06:59 06:59
Intake Total 240 / 240 960 / 960
Balance 240 / 240 960 / 960
--- NOTE | 2024-08-26 12:06 | PTCARENOTE ---
pt daughter called this AM and spoke to this nurse. pt daughter stated that she spoke to an anesthesiologist and that her mother can receive sedation for the brain MRI. This nurse reexplaied that the vascular surgeon and neurologist did NOT need the
MRI for the pt to be treated in medical lab assistant. pt daughter asked if her mother could be sedated to have back MRI completed that was ordered by physcian prior to admission to be completed outpt. This nurse explained to pt daughter that they may not be
able to complete as it is not related to admit dx and pt has failed 2 previous MRI attempts yesterday. Pt daughter was frustrated on the phone. this nurse had to end call to address medical emergency with another pt. This nurse told pt daughter that
i needed to address medical emergency and that the daughter can follow up with the ICU nurse and hospitalist post procedure.
--- NOTE | 2024-08-26 12:48 | W.SUR.POST ---
Surgical Immediate Post Op
Note
Pre Op Diagnosis: Carotid stenosis
Post Op Diagnosis: Same
Procedure Performed: Left carotid endarterectomy with bovine pericardial patch angioplasty and EEG monitoring
Primary Surgeon: Shankar
Assist: Fariba ERAZO
Anesthesia: General
Estimated Blood Loss: 35 cc
Fluids: See anesthesia flowsheet
Drains/Shunts: None
Specimens/Cultures: Carotid plaque
Doppler/Duplex/Angio (Y/N): Yes
Complications: None
Operative Findings: Woke from anesthesia moving all extremities
[2024-08-26 13:42] LABS: Hematocrit 41.4 % (37.0-47.0); Hemoglobin 13.3 g/dL (12.0-16.0); Mean Corp Hgb Conc. 32.1 g/dL (33.0-37.0); Mean Corpuscular Hgb 28.5 pg (27.0-31.0); Mean Corpuscular Volume 88.8 fL (81.0-99.0); Mean Platelet Volume 10.5 fL (7.4-10.4); Platelet Count 160 10^3/uL (130-400); Red Blood Cell Count 4.66 10^6/uL (4.20-5.40); Red Cell Dist. Width 13.7 % (11.5-14.5); White Blood Cell Count 11.6 10^3/uL (4.8-10.8)
[2024-08-26 13:44] LABS: INR 1.12; PT 14.7 Sec (11.4-14.6)
[2024-08-26 13:49] LABS: Blood Urea Nitrogen 16 mg/dl (7-17); Calcium 7.9 mg/dl (8.4-10.2); Carbon Dioxide 21 mmol/L (22-30); Chloride 105 mmol/L (98-107); Estimated Creatinine Clearance 59 ml/min; Glucose 164 mg/dl (70-99); Potassium 3.6 mmol/L (3.5-5.1); Sodium 136 mmol/L (135-145); eGFR > 60.00
[2024-08-26] MEDS: CALCIUM GLUCONATE 100 IV (14:18)
[2024-08-26] MEDS: NSS 1000 IV (14:21)
--- NOTE | 2024-08-26 15:12 | CON.INTV ---
Consultation
Consultation Request
Date/Time Consultation Requested: 08/26/2024-3:15 PM
Date/Time Consultation Performed: 08/26/2024-3:30 PM
Requesting Provider: Vascular surgery
Performing Provider: Dr. Baer
Reason for Consultation: Postoperative critical care management
Medical History
-
Chief Complaint: Carotid stenosis
History of Present Illness:
84-year-old non-smoking female with a history of hypertension, hyperlipidemia, hypothyroid, CVAs, anxiety, chronic back pain, GERD who presented with aphasia and some stuttering of her speech and underwent carotid endarterectomy-learning administrator
consulted for postoperative critical care management 08/26/2024. The patient is seen postoperatively in the surgical intensive care unit. She denies any shortness of breath, chest pain, chest congestion, productive cough, abdominal pain, nausea,
leg swelling, new aphasia, or new focal weakness.
Past Medical History
Past Medical History: None (Hypertension. Hyperlipidemia. Hypothyroid. GERD. Left frontal and occipital lobe CVAs. Chronic back pain/T11 compression fracture. GI bleed. Anxiety. Cholecystectomy. CLEMENTE. Hemorrhoidectomy. Cataract.)
Social History
Tobacco: Non-smoker
Personal:
Living: With Family
Occupational Exposures: No known asbestos exposure
Environmental Exposures: No known tuberculosis exposure
Family History
Family History: Reviewed & Not Pertinent
Allergies / Home Medications
Allergies
Allergy/AdvReac Type Severity Reaction Status Date / Time
amoxicillin Allergy THROAT Verified 04/15/23 12:47
SWELLS
Cephalosporins Allergy Vomiting Verified 04/15/23 12:47
clavulanic acid Allergy Unknown Verified 04/15/23 12:47
codeine [Codeine] Allergy VOMITING Verified 04/15/23 12:47
colesevelam [From WelChol] Allergy Unknown Verified 04/15/23 12:47
diphenhydramine HCl Allergy hallucinati Verified 04/15/23 12:47
[From Benadryl] ons
ezetimibe [From Zetia] Allergy Unknown Verified 04/15/23 12:47
hydromorphone Allergy vomiting Verified 04/15/23 12:47
severe
hydromorphone HCl Allergy severe Verified 04/15/23 12:47
[From Dilaudid] vomiting
meperidine Allergy vomiting Verified 04/15/23 12:47
morphine Allergy vomiting Verified 04/15/23 12:47
niacin Allergy Unknown Verified 04/15/23 12:47
[From Niaspan
Extended-Release]
Penicillins Allergy augmentin Verified 04/15/23 12:47
made
throat
swell
propoxyphene Allergy darvon-xiong Verified 04/15/23 12:47
ucinations
propoxyphene HCl Allergy hallucinations Verified 04/15/23 12:47
[From Darvon] and severe
vomiting
simvastatin [From Zocor] Allergy Unknown Verified 04/15/23 12:47
sulfamethoxazole Allergy Unknown Verified 04/15/23 12:47
[From Bactrim]
trimethoprim [From Bactrim] Allergy Unknown Verified 04/15/23 12:47
Home Medications
�Medication �Instructions �Recorded �Confirmed �Last Taken �Type
cyanocobalamin (vitamin B-12) 1,000 mcg PO DAILY Supplement 11/12/22 08/25/24 05/03/23 08:00 History
1,000 mcg tablet
clopidogrel 75 mg tablet 75 mg PO DAILY Blood Clot 04/15/23 08/25/24 05/03/23 08:00 History
Prevention/Tx
pantoprazole 40 mg tablet,delayed 40 mg PO DAILY Gastrointestinal 04/15/23 08/25/24 05/03/23 08:00 History
release Issue
amlodipine 10 mg tablet 10 mg PO DAILY Blood Pressure 08/24/24 08/25/24 Unknown History
lidocaine 4 % topical patch 1 patch topical DAILYPRN PRN back 08/24/24 08/25/24 Unknown History
pain
lorazepam 0.5 mg tablet 0.5 mg PO HS PRN sleep 08/24/24 08/25/24 Unknown History
rosuvastatin 10 mg tablet 10 mg PO QPM High Cholesterol 08/24/24 08/25/24 Unknown History
tramadol 50 mg tablet 50 mg PO Q8HPRN PRN pain 08/24/24 08/25/24 Unknown History
Bifidobacterium infantis 4 mg 4 mg PO DAILY probiotic 08/25/24 08/25/24 Unknown History
capsule (Align (B.infantis))
aspirin 81 mg tablet,delayed 81 mg PO DAILY Blood Clot 08/25/24 08/25/24 Unknown History
release Prevention/Tx
levothyroxine 50 mcg tablet 50 mcg PO DAILY@0600 Thyroid 08/25/24 08/25/24 Unknown History
Review of Systems
-
Unable to Obtain full review of systems at this time due to: Other (Per HPI)
Vitals / Labs / Diagnostic Testing
Vital Signs
Temp Pulse Resp BP Pulse Ox
98.0 F 97 14 144/108 99
08/26/24 14:45 08/26/24 14:15 08/26/24 10:27 08/26/24 14:15 08/26/24 14:45
Lab Data
08/26/24 13:27
08/26/24 13:27
Laboratory Results
08/26/24
13:26
PT 14.7 H
INR 1.12
APTT 25.0
Diagnostic Testing:
Physical Exam
-
Exam:
Well-nourished and well-developed in no apparent distress
HEENT-atraumatic, normocephalic, left carotid endarterectomy
Neck-supple, no JVD, no bruit
Heart-regular rate and rhythm-no murmurs, rubs or gallops
Chest-clear to auscultation, no wheezes, crackles
Back-no tenderness
Abdomen-soft, nontender, nondistended, no hepatosplenomegaly
Extremities-no cyanosis, clubbing, edema and good peripheral pulses
Integument-intact, no rashes, lesions or ecchymosis
Neurology-alert and oriented, nonfocal motor and sensory exam
Assessment
-
84-year-old non-smoking female with a history of hypertension, hyperlipidemia, hypothyroid, CVAs, anxiety, chronic back pain, GERD who presented with aphasia and some stuttering of her speech and underwent carotid endarterectomy-learning administrator
consulted for postoperative critical care management 08/26/2024.
Symptomatic left carotid stenosis
Status post left carotid endarterectomy-Dr. Chaparro 08/26/2024
Mild leukocytosis
Hyperglycemia
Hypocalcemia
Conditions present prior to admission:
Hypertension.
Hyperlipidemia.
Hypothyroid.
GERD.
Left frontal and occipital lobe CVAs.
Chronic back pain/T11 compression fracture.
GI bleed.
Anxiety.
Cholecystectomy. CLEMENTE. Hemorrhoidectomy. Cataract.
Plan
Postoperative surgical intensive care unit monitoring
Supplemental oxygen as needed
Incentive spirometry
Aspiration precautions
Neuro and vascular checks per protocol
Monitor blood pressure/perfusion pressures and pulses closely
Vascular surgery following-correspondence and operative notes reviewed
Monitor blood sugars
Replace electrolytes
Insulin supplementation as needed
DVT prophylaxis
Early nutrition
Early mobilization
Reviewed status with multiple family members at the bedside
Critical care statement: A total of 55 minutes of critical care time was provided for this patient today. This includes management of unstable vital signs, evaluation of the patient at bedside, reviewing the patient's pertinent medical records
including radiographs, microbiology, laboratory evaluations, and discussion with primary team, consultants, pharmacy, nutrition, physical therapy, case management, charge nurse, critical care nursing, and respiratory therapy.
Diagnostic data:
Chest x-ray 10/16/2022-NAD
CT head 08/24/2024-no acute intracranial abnormalities aspects score 10
CT head and neck angiogram, left carotid to 70% stenosis, no ambler of Hernandes region aneurysm or stenosis, no cerebral artery significant plaque stenosis thrombus or occlusion
Echocardiogram 04/17/2023-EF 55-60%,, no significant valvular disease
Data Reviewed
-
EKG: Report reviewed by me
CT Scan: Report reviewed by me
Medical Tests (Nuc Med, Echo etc): Image personally visualized and interpreted
Labs: Labs reviewed by me
Old Records: Reviewed
Critical Care Time (in minutes): 55
--- NOTE | 2024-08-26 15:20 | OR.RPT ---
Operative Report
Operative Report
PROCEDURE DATE: 08/26/2024
Preoperative diagnosis: Symptomatic left carotid artery stenosis.
Postoperative diagnosis: Same
Procedure: Left carotid endarterectomy with bovine pericardial patch angioplasty and intraoperative EEG/SSEP monitoring.
Surgeon: Shankar
Taxation Consultant: MARKEL Link required for all aspects of procedure including assistance with traction/countertraction, following of suture line, assistance with closure.
Complications: None
Anesthesia: General
Indications for procedure:
Symptomatic left carotid artery stenosis (episode of expressive aphasia). Risk/benefits/alternatives were also discussed. Patient understood all wished to proceed.
Description of procedure:
Patient was identified brought to the operating room placed on the table in supine position. After the adequate administration of anesthesia and perioperative antibiotics she was prepped and draped in the standard surgical fashion. A standard
preoperative timeout was undertaken and everybody was in agreement the plan. A standard longitudinal incision was made in the left neck that was carried through the skin subcutaneous tissue. Using the electrocautery dissection was carried through
the platysma muscle layer and then alongside the anterior medial border of the sternocleidomastoid muscle. Then using a combination of sharp dissection with the Metzenbaum scissors and electrocautery I dissected along the anterior medial border of
the internal jugular vein. A smaller crossing jugular vein branch was ligated between silk ties and divided, and then subsequently more cephalad the common facial vein branch was ligated between silk ties and then divided. I then deepened my
retraction. The common carotid artery was identified and carefully dissected away from the surrounding structures take great care to avoid any injury to the structures. The vessel was a little sticky to dissect, but I was able to dissect it
carefully away from surrounding structures. Vagus nerve was visualized in its usual course posterior lateral to the artery and care was taken to protect it and prevent any injury. A vessel loop was passed around it which was double looped, but not
yet tightened. I then continued my dissection up the common carotid artery to the bulb staying only on the anterior surface of the carotid artery. Then I carried the dissection up to the internal carotid artery and then to the distal internal
carotid artery. I identified where it was soft and carefully circumferentially dissected the internal carotid artery with minimal mobilization and passed a vessel loop around it. Note the hypoglossal nerve was not visualized in our field and felt
to be further cephalad. The patient was given an appropriate dose of heparin 7000 units. Next I dissected the anterior surface of the external carotid artery. Note, the superior thyroid branch was located moderately cephalad, and therefore I did
not have to separately isolate this branch. The external carotid artery was then carefully circumferentially dissected with minimal mobilization and vessel loops passed around it which was double looped but not yet tightened. After 3 minutes of
heparin circulation time and confirmation of optimization of the blood pressure with my anesthesiology colleagues, I clamped the distal internal carotid artery where it was soft. There was no immediate EEG or SSEP changes. After 1 minute of test
clamp time there was no changes noted. Therefore at this point, the vessel loops on the external carotid artery was tightened and the common carotid artery was clamped where it was soft proximally. An arteriotomy was made on the common carotid
artery with an 11 blade and extended using a Naqvi scissor. I extended the arteriotomy onto the mid to distal internal carotid artery. There was a chronic calcified plaque that was fairly bulky and coral reef like in nature at the very distal
carotid bulb as noted on CT scan.. A Bittinger was then used to endarterectomized the plaque. An endarterectomy plane was created, and the plaque was then endarterectomized. It was slightly difficult to manipulate proximally distally as the normal
intima beyond the plaque was slightly friable. Distally I feathered the plaque out to a nice clean endpoint in the distal internal carotid artery. However, again as noted the intima was friable and therefore I had to carefully tease intimal pieces
until I got to a more reasonable nicely adherent endpoint. Next I endarterectomized the intima back to normal intima in the common carotid artery, and the intima was cut flush there. However, here I struggled a little bit. The intima kept
loosening. I then grasped the plaque and everted plaque out of the origin of the external carotid artery. The plaque was then sent off for specimen. The origin of the external carotid artery was carefully visualized and any fine debris were
removed with fine forceps. Proximal and distal endpoints were then carefully inspected. Proximally a few times I had to dissect more proximally and move my clamp more proximally on the common carotid artery so as to be able to get a clean
endpoint. Finally, I was able to get far enough and tease the intima out nicely and the endpoint ended very well. Any fine debris was removed with fine forceps, and the intima was noted to be nicely adherent proximally and distally at this point.
Next any fine debris were removed throughout the endarterectomy bed with fine forceps. Interrupted 7-0 Prolene tacking sutures were placed to tack the distal endpoint. I then flushed heparinized saline. I was very satisfied. Then, I used a
bovine pericardial patch to sew a patch angioplasty with a running 6-0 Prolene suture. Prior to completing and tying down my suture line, I backbled sequentially each branch and reclamped each branch prior to unclamping the next branch. I then
irrigated with heparinized saline. Then I completed and tied down my suture line. We then restored flow in the common carotid and external carotid arteries. Finally, we released flow in the internal carotid artery. There was excellent pulsatile
flow in all 3 vessels. There was an excellent Doppler signal in the internal carotid artery distal to the patch with a good normal low resistance Doppler signal. There was a good Doppler signal in the external carotid artery as well. 6-0 Prolene
[id number] sutures were placed along any bleeding points along the suture line. Protamine was given to reverse the heparin. Hemostasis was completely achieved. We then irrigated and confirmed full hemostasis. We then closed in layers with
2-0 Vicryl layer to reapproximate the sternocleidomastoid muscle, followed by 3-0 Vicryl platysma muscle running layer, followed by 4 Monocryl subcuticular stitch. Dermabond was applied. The patient tolerated procedure well. She awoke moving all
extremities to command with tongue in the midline.
[2024-08-26] MEDS: TYLENOL 650 MG PO (15:30)
--- NOTE | 2024-08-26 16:09 | PTCARENOTE ---
received pt form pacu. nihss done as documented. pt forgetful. has slightly garbled speech and does have a little word searching. pt at bedside sates this is her baseline pre this admission. left neck surgical site closed with glue
c/d/i. pt moving in bed. ivf running as ordered. monica in place. dr sheehan at bedside reviewed case with family and noted bp said ok with bp 165-170 sys. pt states pain in neck site tylenol given as ordered.
--- NOTE | 2024-08-26 17:10 | PTCARENOTE ---
pt family asked if pt could have her outpt ordered mri of her back done while admitted under twilight due to pt unable to lay still. referred family to caseworker protective services.
[2024-08-26] MEDS: CRESTOR 40 MG PO (17:48)
[2024-08-26] MEDS: CARDENE 200 IV (18:12)
--- NOTE | 2024-08-26 21:15 | PTCARENOTE ---
1900 Upon change of shift neuro check, noted change in mental status GCS 13 (from 15), NIH 6 (from 0-1). Unable to articulate any words (mumbling random syllables), continues following commands, 5/5 TILLEY, tongue midline, equal pupils. PIER MASTER Davis
aware. CTH done. MD Echols updated via TT. Upon return to room, pt verbalizing name, will not tell age (jokingly) and does not know where she is. She is forgetful, asking the same questions, but easily redirectable. Appropriately let me know she
needed a bedpan. Will monitor
[2024-08-27] VITALS (15 sets, daily range): BP systolic 95–151; BP diastolic 53–99; PULSE 92
--- NOTE | 2024-08-27 01:00 | PTCARENOTE ---
Pt waxes and wanes drastically neurologically. When engaged in longer length of conversation, she starts to become more oriented. However, she remains forgetful and displaying expressive aphasia at times. She was able to give me her full birthday,
including year 2x overnight. Consistently oriented to self and month/day. Pt unable to tell me place, but says 'I am in a bedroom'. Pupils equal/reactive. TILLEY 5/5, follows commands. Surgical site CDI, edges approximated, local erythema. Pt
refusing Tylenol/Ice pack for neck. Says she is 'ok'. Cardene on low rate for SBP goals. Will continue to monitor closely and check neuro status q1h.
[2024-08-27] MEDS: NSS 1000 IV (01:58)
[2024-08-27] MEDS: ANESTHETIC LOZENGE 1 LOZENGE PO (03:36)
[2024-08-27 03:46] LABS: Hemoglobin 12.5 g/dL (12.0-16.0); Mean Corp Hgb Conc. 33.8 g/dL (33.0-37.0); Mean Corpuscular Hgb 29.6 pg (27.0-31.0); Mean Corpuscular Volume 87.7 fL (81.0-99.0); Mean Platelet Volume 11.2 fL (7.4-10.4); Platelet Count 148 10^3/uL (130-400); Red Blood Cell Count 4.22 10^6/uL (4.20-5.40); Red Cell Dist. Width 13.6 % (11.5-14.5); White Blood Cell Count 13.4 10^3/uL (4.8-10.8)
[2024-08-27 03:56] LABS: APTT 28.6 Sec (23.4-35.0); INR 1.04; PT 13.9 Sec (11.4-14.6)
[2024-08-27 04:15] LABS: Blood Urea Nitrogen 15 mg/dl (7-17); Calcium 8.3 mg/dl (8.4-10.2); Carbon Dioxide 20 mmol/L (22-30); Chloride 107 mmol/L (98-107); Estimated Creatinine Clearance 59 ml/min; Glucose 136 mg/dl (70-99); Potassium 4.1 mmol/L (3.5-5.1); Sodium 137 mmol/L (135-145); eGFR > 60.00
--- NOTE | 2024-08-27 05:08 | PTCARENOTE ---
Neuro status as previously documented. GCS 14-15, expressive aphasia/word searching at times. PERRLA 3, TILLEY 5/5. Turns independently in bed with direction. Following commands. Neck incision edges approximated. Ice packs as needed, encouraged pt to
apply ice. Pt not interested at this time. AM labs sent and pending. Wishes to wait until later to get washed up. Pattie care done with toileting, back wiped down. Pt got full bath upon arrival from OR on previous shift. Will follow up with AM care
and mouth care. Pt was offered mouth care several times overnight. Pt did allow sips of water and a throat lozenger overnight. Will monitor.
[2024-08-27] MEDS: SYNTHROID 50 MCG PO (06:37)
[2024-08-27] MEDS: CARDENE 200 IV (07:12)
--- NOTE | 2024-08-27 07:19 | W.PN.INTV ---
Today's Communication / Plan
Recommendations
Wean Cardene drip
deline
Neurovascular checks
Wean oxygen
Transfer out of ICU-call pulmonary if respiratory issues arise
Assessment
-
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
consulted for postoperative critical care management 08/26/2024.
Symptomatic left carotid stenosis
Status post left carotid endarterectomy-Dr. Chaparro 08/26/2024
Mild leukocytosis
Hyperglycemia
Hypocalcemia
Conditions present prior to admission:
Hypertension.
Hyperlipidemia.
Hypothyroid.
GERD.
Left frontal and occipital lobe CVAs.
Chronic back pain/T11 compression fracture.
GI bleed.
Anxiety.
Cholecystectomy. CLEMENTE. Hemorrhoidectomy. Cataract.
Plan
Hemodynamically and neurovascularly intact
Wean supplemental oxygen
Incentive spirometry encourage
Aspiration precautions
Monitor hemoglobin
Transfuse if needed
Monitor blood sugars
Insulin supplementation if needed
Neuro and vascular checks per protocol also continue
Wean Cardene drip
Vascular surgery closely
DVT prophylaxis recommended
Nutrition
Increase activity/physical therapy
Dr. Baer reviewed with multiple family members 08/26/2024
Patient can be transferred out of ICU-call pulmonary if respiratory issues arise
Reviewed the patient's pertinent medical records including radiographs, microbiology, laboratory evaluations, and discussion with primary team, consultants, pharmacy, nutrition, physical therapy, case management, charge nurse, critical care
nursing, and respiratory therapy.
Diagnostic data:
Chest x-ray 10/16/2022-NAD
CT head 08/24/2024-no acute intracranial abnormalities aspects score 10
CT head and neck angiogram, left carotid to 70% stenosis, no [place] aneurysm or stenosis, no cerebral artery significant plaque stenosis thrombus or occlusion
Echocardiogram 04/17/2023-EF 55-60%,, no significant valvular disease
Subjective Dataa
Subjective Data
Date of Service:
Date of Service: August 27, 2024
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
Subjective:
No complaints of shortness of breath, chest pain, abdominal pain, worsening dysarthria
Review of Systems
General: Other (Per HPI)
Objective Data
Data Reviewed
Vital Signs / I&O / Oxygen:
Vital Signs
Temp Pulse Resp BP Pulse Ox
98.4 F 85 18 104/61 97
08/27/24 03:48 08/27/24 06:30 08/27/24 06:30 08/27/24 01:30 08/27/24 06:30
Intake and Output
08/26/24 08/27/24 08/28/24
06:59 06:59 06:59
Intake Total 960 / 960 2080.0 / 2080.0
Output Total 1700 / 1700
Balance 960 / 960 380.0 / 380.0
SaO2 97
Nasal Cannula flow liters per 4
minute
Physical Exam
General: Respiratory Distress (n) and Comfortable
HEENT: Normocephalic, Anicteric and Moist Mucous Membranes
Cardiovascular: Regular Rhythm and Murmur
Respiratory: Crackles (n), Rhonchi, Non-Labored Respirations and Accessory Resp Muscle Use (n)
GI: Soft, Non Distended and Non Tender
Neurology: Awake, Alert and No Motor Deficits
Skin: Warm, Good Color, Cyanosis (n), Jaundice (n) and Rash (n)
Labs/Micro/Reports
Lab Data
08/27/24 03:31
08/27/24 03:31
Laboratory Results
08/26/24 08/27/24
13:26 03:31
PT 14.7 H 13.9
INR 1.12 1.04
APTT 25.0 28.6
[2024-08-27] MEDS: NORVASC 10 MG PO (07:47)
[2024-08-27] MEDS: PROTONIX 40 MG PO (07:47)
[2024-08-27] MEDS: PLAVIX 75 MG PO (07:47)
[2024-08-27] MEDS: LOW STRENGTH ASPIRIN 81 MG PO (07:47)
--- NOTE | 2024-08-27 07:54 | W.PN.VS ---
Today's Communication / Plan
-
.
Assessment/Plan
-
POD 1 s/p CEA
-wean cardene gtt
-Ok for OOB
-ok to d/c SCDs
-continue neurovascular checks
-ok for regular diet
Subjective Data
-
Date of Service: August 27, 2024
Patient only complains of annoyance with SCDs
Objective Data
-
Vital Signs
Temp Pulse Resp BP Pulse Ox
98.4 F 97 20 145/64 91
08/27/24 03:48 08/27/24 07:47 08/27/24 07:45 08/27/24 07:47 08/27/24 07:45
Intake and Output
08/26/24 08/27/24 08/28/24
06:59 06:59 06:59
Intake Total 960 / 960 2080.0 / 2172.0
Output Total 1700 / 1700
Balance 960 / 960 380.0 / 472.0
Intake:
Oral fluids 960 / 960 450 / 450
IV fluids (Total) 1530.0 / 1622.0
Cardene 150.0 / 162.0
NSS 100 / 100
Nss 1,000 ml @ 80 mls/hr IV . 1280 / 1360 80 / 80
[id number] ALEN Rx#:[id number]
IV piggybacks 100 / 100
Output:
Urine, [place] 200 / 200
Urine, Voided 1500 / 1500
Other:
Number of approximated MODERATE 3 2
amounts of urine
Number of approximated LARGE 1
amounts of urine
Lab Results
08/27/24 03:31
08/27/24 03:31
Calcium 8.3 mg/dl (8.4-10.2) L 08/27/24 03:31
Magnesium 2.1 mg/dl (1.6-2.3) 08/25/24 05:26
Total Bilirubin 1.5 mg/dl (0.2-1.3) H 08/25/24 05:26
AST 19 U/L (14-36) 08/25/24 05:26
ALT 11 U/L (0-35) 08/25/24 05:26
Alkaline Phosphatase 77 U/L (38-126) 08/25/24 05:26
Total Protein 6.0 g/dl (6.3-8.2) L 08/25/24 05:26
Albumin 3.7 g/dl (3.5-5.0) 08/25/24 05:26
Physical Exam
-
L neck incision c/d/i
small superficial hematoma, soft and mobile
neurovascular in tact
--- NOTE | 2024-08-27 08:32 | PTOTSP ---
Patient is s/p L CEA and transferred to ICU. Will require updated PT orders to resume therapy services when appropriate.
--- NOTE | 2024-08-27 10:57 | CM ---
Patient seen at bedside. Patient is s/p CEA per surgery. Patient is still listed as OBS/PORTER and form given 08/25. Nursing requested updated PT/OT notes to assess discharge needs. CM will continue to follow for discharge planning needs.
Plan;pending assessment and medical treatment plan
--- NOTE | 2024-08-27 12:24 | W.PN.HOSP.TC ---
Today's Communication/Plan
-
Assessment / Plan
Assessment / Plan
NAD continues to aphasia is baseline for her
Scleral Anicteric
MMM
No JVD
CTABL
RRR, S1/S2
Soft, NT, ND, BS+
Warm, Dry
AAOx3 5/5 motor strength in all upper and lower extremity, full sensations intact
Calm
Carotid artery stenosis, symptomatic, 65 to 70%
S/p endarterectomy on 08/26
Continue DAPT statin
Outpatient vascular surgery follow-up
PT/OT
B12 deficiency
Continue cyanocobalamin
Hypertension
Continue antihypertensive
Hyperlipidemia
Continue crestor
Hypothyroidism
-Continue levothyroxine
Acute on Chronic Back Pain
-Patient scheduled for MRI tomorrow (Aug 24 at 8pm)
GERD
-Continue Protonix
Prediabetic with A1c of 5.8
-Monitor sugars, dietary/lifestyle modification
DNR
Anticipated Discharge: 24 - 48 hours
Subjective/Interval History
-
Date of Service: August 27, 2024
Seen and examined. Tolerated endarterectomy well. Admits to feeling little dizzy while standing.
Objective Data
-
Labs:
Laboratory Results
08/27/24
03:31
WBC 13.4 H
Hgb 12.5
Hct 37.0
Plt Count 148
PT 13.9
INR 1.04
APTT 28.6
Sodium 137
Potassium 4.1
Chloride 107
Carbon Dioxide 20 L
BUN 15
Creatinine 0.7
Glucose 136 H
Calcium 8.3 L
Vital Signs:
Vital Signs
Temp Pulse Resp BP Pulse Ox
98.5 F 94 24 151/79 93
08/27/24 12:08 08/27/24 10:30 08/27/24 10:30 08/27/24 10:18 08/27/24 10:01
I&O
08/26/24 08/27/24 08/28/24
06:59 06:59 06:59
Intake Total 960 / 960 2080.0 / 2172.0 452 / 452
Output Total 1700 / 1700
Balance 960 / 960 380.0 / 472.0 452 / 452
--- NOTE | 2024-08-27 14:14 | TRANSFER ---
Report called to Stacey FERNANDEZ for room 2116. Pt will be transferred via wheel chair and oxygen. Family present at the time of transfer.
[2024-08-27] MEDS: VITAMIN B-12 PO (14:16)
[2024-08-27] MEDS: CRESTOR 40 MG PO (17:02)
[2024-08-28 03:28] VITALS: BP 128/82
[2024-08-28 05:55] LABS: Hematocrit 34.9 % (37.0-47.0); Hemoglobin 11.1 g/dL (12.0-16.0); Mean Corp Hgb Conc. 31.8 g/dL (33.0-37.0); Mean Corpuscular Hgb 28.7 pg (27.0-31.0); Mean Corpuscular Volume 90.2 fL (81.0-99.0); Mean Platelet Volume 11.3 fL (7.4-10.4); Platelet Count 151 10^3/uL (130-400); Red Blood Cell Count 3.87 10^6/uL (4.20-5.40); Red Cell Dist. Width 14.2 % (11.5-14.5); White Blood Cell Count 9.4 10^3/uL (4.8-10.8)
[2024-08-28] MEDS: SYNTHROID 50 MCG PO (06:30)
[2024-08-28 07:35] VITALS: BP 139/75
[2024-08-28] MEDS: PLAVIX 75 MG PO (08:11)
[2024-08-28] MEDS: NORVASC 10 MG PO (08:11)
[2024-08-28] MEDS: PROTONIX 40 MG PO (08:11)
[2024-08-28] MEDS: VITAMIN B-12 1000 MCG PO (08:14)
[2024-08-28] MEDS: LOW STRENGTH ASPIRIN 81 MG PO (08:14)
[2024-08-28 10:18] VITALS: BP 132/79; BP 138/72; BP 143/70; PULSE 105; PULSE 106; PULSE 98
[2024-08-28 11:20] VITALS: BP 98/59
--- NOTE | 2024-08-28 11:48 | W.PN.HOSP.TC ---
Today's Communication/Plan
-
CHeck orthostatics
IVF at 80cc/hr
PT rec Home Health when cleared for DC
Assessment / Plan
Assessment / Plan
NAD continues to aphasia is baseline for her
Scleral Anicteric
MMM
No JVD, left neck with 2inch incinsion line, well approximated, without drainage/erythema, noted some ecchymosis
CTABL
RRR, S1/S2
Soft, NT, ND, BS+
Warm, Dry
AAOx3 5/5 motor strength in all upper and lower extremity, full sensations intact
Calm
Carotid artery stenosis, symptomatic, 65 to 70%
S/p endarterectomy on 08/26
Continue DAPT statin
Outpatient vascular surgery follow-up
PT/OT
B12 deficiency
Continue cyanocobalamin
Hypertension
Continue antihypertensive
Hypotension
-Hold antihypertensives
-IVF
Dizziness
-Check orthostatics
Hyperlipidemia
Continue crestor
Hypothyroidism
-Continue levothyroxine
Acute on Chronic Back Pain
-Back mri
GERD
-Continue Protonix
Prediabetic with A1c of 5.8
-Monitor sugars, dietary/lifestyle modification
DNR
Anticipated Discharge: Within 24 hours
Subjective/Interval History
-
Date of Service: August 28, 2024
seen and exained. no new coplaints.
sitting in bedside chair. intermittent dizziness, worse with standing
Objective Data
-
Labs:
Laboratory Results
08/28/24
04:22
WBC 9.4
Hgb 11.1 L
Hct 34.9 L
Plt Count 151
Vital Signs:
Vital Signs
Temp Pulse Resp BP Pulse Ox
98.5 F 99 18 98/59 90
08/28/24 11:20 08/28/24 11:20 08/28/24 11:20 08/28/24 11:20 08/28/24 11:20
I&O
08/27/24 08/28/24 08/29/24
06:59 06:59 06:59
Intake Total 2080.0 / 2172.0 812 / 812 480 / 480
Output Total 1700 / 1700
Balance 380.0 / 472.0 812 / 812 480 / 480
--- NOTE | 2024-08-28 12:11 | CHAP ---
Leny said she was feeling depressed. She shared her thoughts and feelings, then welcomed prayer, which brought comfort. Emotional and spiritual support provided, along with a prayer blanket and assurance of our on-going availability.
[2024-08-28 12:33] VITALS: BP 138/85; PULSE 96; O2SAT 90
--- NOTE | 2024-08-28 12:40 | CM ---
Addendum entered by Jeannie Zimmerman 08/28/24 14:51:
Patient discharged to home today with Home Health; will transport home
Original Note:
Met with patient and at bedside
Explained that home health was recommended; agency options reviewed; referral sent to [facility] via [facility]
IMM benefit explained; signed form @ [id number]
Plan: discharge to home when medically stable with home health
== END 2024-08-28 15:05 | disposition home health service (06) | DRG 39 ==
LOC: 2 SOUTH 12:56
PROVIDERS: Nurse Practitioner Acute Care; Physician Assistant Medical; Surgery Vascular Surgery; ADMITTING PHYSICIAN Hospitalist; ATTENDING PHYSICIAN Hospitalist; CONSULT PHYSICIAN Internal Medicine Critical Care Medicine; CONSULT PHYSICIAN Psychiatry & Neurology Clinical Neurophysiology; EMERGENCY PHYSICIAN Emergency Medicine; FAMILY PHYSICIAN Family Medicine
PROC: 03CL0ZZ Extirpation of Matter from Left Internal Carotid Artery, Open Approach (ICD-10-PCS; 2024-08-26)
PROC: 03UL0KZ Supplement Left Internal Carotid Artery with Nonautologous Tissue Substitute, Open Approach (ICD-10-PCS; 2024-08-26)
DX: I65.22 Occlusion and stenosis of left carotid artery (principal); E78.00 Pure hypercholesterolemia, unspecified; E03.9 Hypothyroidism, unspecified; R47.01 Aphasia; I10 Essential (primary) hypertension; Z66 Do not resuscitate; F41.9 Anxiety disorder, unspecified; G47.00 Insomnia, unspecified; I69.311 Memory deficit following cerebral infarction; E83.51 Hypocalcemia; G89.29 Other chronic pain; E53.8 Deficiency of other specified B group vitamins; R73.03 Prediabetes; I95.9 Hypotension, unspecified; K21.9 Gastro-esophageal reflux disease without esophagitis; M54.9 Dorsalgia, unspecified; D72.829 Elevated white blood cell count, unspecified; Z88.5 Allergy status to narcotic agent; Z88.2 Allergy status to sulfonamides; Z88.1 Allergy status to other antibiotic agents; Z88.0 Allergy status to penicillin; Z79.899 Other long term (current) drug therapy; Z79.82 Long term (current) use of aspirin; Z79.02 Long term (current) use of antithrombotics/antiplatelets
CPT/HCPCS: 88304; 88311; 35301; 70450; 70496; 70498; 80048; 80053; 80061; 82962; 83036; 83735; 84443; 84484; 85025; 85027; 85610; 85730; 86850; 86900; 86901; 92523; 92610; 93005; 95938; 95941; 95955; 97116; 97163; 97166; 99285; Q9967

== ENCOUNTER → 2024-09-10 07:03 | Outpatient (REF) | payer MEDICARE, SELFPAY ==
[2024-09-10 08:37] LABS: % Eosinophils 2.9 % (0-6); % Immature Granulocytes 0.5 % (0-0.5); % Lymphocytes 18.1 % (20.5-51.1); % Monocytes 8.7 % (1.7-9.3); % Neutrophils 68.8 % (42.2-75.2); Absolute Basophils 0.1 10^3/uL (0-0.2); Absolute Eosinophils 0.2 10^3/uL (0-0.7); Absolute Lymphocytes 1.1 10^3/uL (1.2-3.4); Absolute Monocytes 0.5 10^3/uL (0.1-0.6); Absolute Neutrophils 4.3 10^3/uL (1.4-6.5); Hematocrit 40.3 % (37.0-47.0); Hemoglobin 12.8 g/dL (12.0-16.0); Mean Corp Hgb Conc. 31.8 g/dL (33.0-37.0); Mean Corpuscular Volume 91.2 fL (81.0-99.0); Mean Platelet Volume 10.4 fL (7.4-10.4); Nucleated Red Blood Cells % 0 %; Platelet Count 304 10^3/uL (130-400); Red Blood Cell Count 4.42 10^6/uL (4.20-5.40); Red Cell Dist. Width 13.7 % (11.5-14.5); White Blood Cell Count 6.2 10^3/uL (4.8-10.8)
[2024-09-10 09:09] LABS: Blood Urea Nitrogen 14 mg/dl (7-17); Carbon Dioxide 30 mmol/L (22-30); Chloride 101 mmol/L (98-107); Glucose 104 mg/dl (70-99); Potassium 3.7 mmol/L (3.5-5.1); Sodium 140 mmol/L (135-145); eGFR > 60.00
== END ==
LOC: REG 07:03
PROVIDERS: ATTENDING PHYSICIAN Family Medicine
DX: Z98.890 Other specified postprocedural states (principal); R53.83 Other fatigue; R73.01 Impaired fasting glucose
CPT/HCPCS: 36415; 80048; 85025

== ENCOUNTER → 2024-10-04 08:37 | Outpatient (REF) | payer MEDICARE, SELFPAY ==
[2024-10-04 09:28] LABS: % Basophils 1.2 % (0-2); % Eosinophils 4.2 % (0-6); % Immature Granulocytes 0.4 % (0-0.5); % Lymphocytes 25.4 % (20.5-51.1); % Monocytes 8.6 % (1.7-9.3); % Neutrophils 60.2 % (42.2-75.2); Absolute Basophils 0.1 10^3/uL (0-0.2); Absolute Eosinophils 0.2 10^3/uL (0-0.7); Absolute Lymphocytes 1.3 10^3/uL (1.2-3.4); Absolute Monocytes 0.4 10^3/uL (0.1-0.6); Hematocrit 44.5 % (37.0-47.0); Hemoglobin 14.6 g/dL (12.0-16.0); Mean Corp Hgb Conc. 32.8 g/dL (33.0-37.0); Mean Corpuscular Hgb 28.9 pg (27.0-31.0); Mean Corpuscular Volume 87.9 fL (81.0-99.0); Mean Platelet Volume 11.1 fL (7.4-10.4); Nucleated Red Blood Cells % 0 %; Platelet Count 146 10^3/uL (130-400); Red Blood Cell Count 5.06 10^6/uL (4.20-5.40); Red Cell Dist. Width 14.1 % (11.5-14.5)
[2024-10-04 09:44] LABS: Glycohemoglobin (HgbA1c) 5.9 % (4.0-5.6)
[2024-10-04 09:51] LABS: ALT (SGPT) 13 U/L (0-35); AST (SGOT) 20 U/L (14-36); Albumin 4.8 g/dl (3.5-5.0); Alkaline Phosphatase 73 U/L (38-126); Blood Urea Nitrogen 17 mg/dl (7-17); Calcium 9.5 mg/dl (8.4-10.2); Carbon Dioxide 25 mmol/L (22-30); Chloride 104 mmol/L (98-107); Glucose 108 mg/dl (70-99); HDL Cholesterol 52 mg/dl; LDL Cholesterol, Calculated 88 mg/dl; Potassium 4.5 mmol/L (3.5-5.1); Sodium 141 mmol/L (135-145); Total Bilirubin 1.5 mg/dl (0.2-1.3); Total Cholesterol 176 mg/dl (50-199); Total Protein 7.3 g/dl (6.3-8.2); Triglyceride 183 mg/dl (10-149); Very Low Density Lipoprotein 36 mg/dl (0-30); eGFR > 60.00
[2024-10-04 10:49] LABS: TSH Reflex To Free T4 2.53 uIU/ml (0.47-4.68)
== END ==
LOC: RAD 08:37
PROVIDERS: ATTENDING PHYSICIAN Registered Nurse; FAMILY PHYSICIAN Family Medicine
DX: I65.22 Occlusion and stenosis of left carotid artery (principal); R73.01 Impaired fasting glucose; E78.2 Mixed hyperlipidemia; E03.9 Hypothyroidism, unspecified
CPT/HCPCS: 36415; 80053; 80061; 83036; 84443; 85025; 93880

== ENCOUNTER 2024-11-03 05:51 | Outpatient (RCR) | payer MEDICARE, SELFPAY | END 2024-11-03 23:59 | disposition home or self-care (01) | LOC: RST 05:51 | PROVIDERS: ATTENDING PHYSICIAN Family Medicine | DX: I69.320 Aphasia following cerebral infarction (principal); I69.390 Apraxia following cerebral infarction; Z73.6 Limitation of activities due to disability; Z98.890 Other specified postprocedural states | CPT/HCPCS: 92523 ==

== ENCOUNTER → 2024-12-01 08:36 | Outpatient (REF) | payer MEDICARE, SELFPAY | LOC: RCS 08:36 | PROVIDERS: ATTENDING PHYSICIAN Internal Medicine Cardiovascular Disease; FAMILY PHYSICIAN Family Medicine | DX: I35.0 Nonrheumatic aortic (valve) stenosis (principal) | CPT/HCPCS: 93306 ==

== ENCOUNTER 2024-12-06 11:10 | Outpatient (RCR) | payer MEDICARE, SELFPAY | END 2024-12-06 23:59 | disposition home or self-care (01) | LOC: RST 11:10 | PROVIDERS: ATTENDING PHYSICIAN Family Medicine | DX: I69.320 Aphasia following cerebral infarction (principal); I69.390 Apraxia following cerebral infarction; Z73.6 Limitation of activities due to disability; Z98.890 Other specified postprocedural states | CPT/HCPCS: 92507 ==

== ENCOUNTER 2024-12-27 10:10 | Outpatient (RCR) | payer MEDICARE, SELFPAY | END 2024-12-27 23:59 | disposition home or self-care (01) | LOC: RST 10:10 | PROVIDERS: ATTENDING PHYSICIAN Family Medicine | DX: I69.320 Aphasia following cerebral infarction (principal); I69.390 Apraxia following cerebral infarction; Z73.6 Limitation of activities due to disability; Z98.890 Other specified postprocedural states | CPT/HCPCS: 92507 ==

== ENCOUNTER → 2025-03-20 06:50 | Outpatient (REF) | payer MEDICARE, SELFPAY ==
[2025-03-20 08:32] LABS: ALT (SGPT) 13 U/L (0-35); AST (SGOT) 19 U/L (14-36); Albumin 4.3 g/dl (3.5-5.0); Alkaline Phosphatase 62 U/L (38-126); Blood Urea Nitrogen 20 mg/dl (7-17); Calcium 9.4 mg/dl (8.4-10.2); Carbon Dioxide 28 mmol/L (22-30); Chloride 105 mmol/L (98-107); Glucose 105 mg/dl (70-99); HDL Cholesterol 46 mg/dl; LDL Cholesterol, Calculated 104 mg/dl; Potassium 4.2 mmol/L (3.5-5.1); Sodium 141 mmol/L (135-145); Total Protein 7.1 g/dl (6.3-8.2); Very Low Density Lipoprotein 38 mg/dl (0-30); eGFR > 60.00
== END ==
LOC: REG 06:50
PROVIDERS: ATTENDING PHYSICIAN Internal Medicine Cardiovascular Disease; FAMILY PHYSICIAN Family Medicine
DX: E78.2 Mixed hyperlipidemia (principal)
CPT/HCPCS: 36415; 80053; 80061

== ENCOUNTER → 2025-04-13 08:51 | Outpatient (REF) | payer MEDICARE, SELFPAY | LOC: RAD 08:51 | PROVIDERS: ATTENDING PHYSICIAN Surgery Vascular Surgery; FAMILY PHYSICIAN Family Medicine | DX: Z98.890 Other specified postprocedural states (principal); I65.22 Occlusion and stenosis of left carotid artery | CPT/HCPCS: 93880 ==

== ENCOUNTER 2025-05-05 14:03 | Emergency (ER) | payer MEDICARE, SELFPAY ==
[2025-05-05 14:03] VITALS: BMI 29.3
[2025-05-05 14:06] VITALS: BP 141/105
[2025-05-05] MEDS: OFIRMEV 100 IV (16:19)
[2025-05-05] MEDS: ZOFRAN 4 MG IV (16:19)
[2025-05-05 16:28] LABS: Hematocrit 42.5 % (37.0-47.0); Hemoglobin 13.1 g/dL (12.0-16.0); Mean Corp Hgb Conc. 30.8 g/dL (33.0-37.0); Mean Corpuscular Volume 91.4 fL (81.0-99.0); Nucleated Red Blood Cells % 0 %; Platelet Count 169 10^3/uL (130-400); Red Cell Dist. Width 14.0 % (11.5-14.5)
[2025-05-05 16:46] LABS: Blood Urea Nitrogen 23 mg/dl (7-17); Calcium 8.7 mg/dl (8.4-10.2); Carbon Dioxide 23 mmol/L (22-30); Chloride 106 mmol/L (98-107); Estimated Creatinine Clearance 52 ml/min; Glucose 157 mg/dl (70-99); Potassium 4.1 mmol/L (3.5-5.1); Sodium 137 mmol/L (135-145); eGFR > 60.00
[2025-05-05 17:00] VITALS: BP 130/69
[2025-05-05 18:00] VITALS: BP 122/88
--- NOTE | 2025-05-05 18:04 | ED.GENMED ---
History of Present Illness
General
Chief Complaint: Fall
Source: patient and spouse
Exam Limitations: none
Time Seen by Provider: 05/05/25 15:58
History of Present Illness
History of Present Illness:
85-year-old female tripped and fell. Landed on her left shoulder. Did not hit her head. Complaining of shoulder pain and some rib pain. Patient is on Plavix. No shortness of breath abdominal pain or other complaints
Past History
Past History
ED Past Medical History: CVA, GERD, Hypercholesterolemia, Hypothyroidism and Psychiatric
ED Past Surgical History: Appendectomy, Cholecystectomy and Gynecological
Social History
Tobacco: Non-smoker
Alcohol: Occasional
Drug: None
Personal:
Living: with family
Employment: Retired
Family History
Family History: Other (Noncontributory)
Review of Systems
Review of Systems
All Other Systems: Not applicable
Respiratory: Denies trouble breathing
Cardiac: Reports no symptoms
ABD/GI: Reports no symptoms
Phy Exam
Physical Exam
Physical Exam:
TRAUMA EXAM:
VITAL SIGNS: Vital signs reviewed, cooperative
DISTRESS: No active disease
EYES: Pupils reactive, no orbital trauma
NOSE: No deformity or epistaxis
FACE AND SCALP: No scalp or facial trauma, external canals no blood
NECK: Supple nontender
BACK: Back nontender, pelvis stable to compression
RESPIRATORY: No distress, breath sounds normal, mild tenderness upper left lateral chest wall. No crepitus
CARDIAC: No murmur, pulses equal and strong
ABDOMEN: Soft nontender bowel sounds normal
SKIN: Skin intact no bleeding, color normal
EXTREMITIES: Swelling hematoma tenderness left proximal arm. Motor or sensory neurovascular intact. All other extremities unremarkable
NEUROLOGICAL: Alert, oriented, no motor deficits
PSYCH: Mood affect normal
Course
Orders/Labs/Results
Orders:
Orders
05/05/25 14:16
CT Head W/o Iv Contrast Urgent
Comment:
Reason For Exam: fall on plavix
05/05/25 14:17
CT Cervical Spine W/o Iv Contr Urgent
Comment:
Reason For Exam: fall on plavix
Shoulder, Left, Trauma CR [CR Shoulder, Trauma - Left] Urgent
Comment:
Reason For Exam: fall on plavix
05/05/25 16:12
HYDROmorphone [Dilaudid] 0.5 mg .ROUTE .STK-MED ONE
Ondansetron Injectable [Zofran] 4 mg .ROUTE .STK-MED ONE
05/05/25 16:16
Cardiac Monitoring- Treatment ONCE
Acetaminophen 1000MG/100Ml [Ofirmev] 1,000 mg in 100 ml IV ONCE
Acetaminophen IV Indication:: ED Narcotic Naive Pt-ONCE
Acetaminophen [Tylenol] 1,000 mg .ROUTE .STK-MED ONE
05/05/25 16:17
Ondansetron Injectable [Zofran] 4 mg IV NOW STA
05/05/25 16:22
Basic Metabolic Panel Urgent
Complete Blood Count/With Diff Urgent
05/05/25 16:34
CR Chest Portable - 1 View Urgent
Comment:
Reason For Exam: sob
Reason Study Needs to be Portable: Unable to Transport
Abnormal Lab Results
05/05/25
16:22
WBC 13.3 H 10^3/uL
(4.8-10.8)
MCHC 30.8 L g/dL
(33.0-37.0)
MPV 11.4 H fL
(7.4-10.4)
Abs Immat Gran (auto) 0.1 H 10^3/uL
(0-0.05)
Absolute Neuts (auto) 10.9 H 10^3/uL
(1.4-6.5)
Absolute Monos (auto) 0.8 H 10^3/uL
(0.1-0.6)
Neutrophils % 82.1 H %
(42.2-75.2)
Lymphocytes % 10.3 L %
(20.5-51.1)
BUN 23 H mg/dl
(7-17)
Glucose 157 H mg/dl
(70-99)
05/05/25 16:22
05/05/25 16:22
Vital Signs
Initial and Last Documented VS:
Initial Vital Signs
Temp Pulse Resp BP Pulse Ox
98.2 F 98 18 141/105 92
05/05/25 14:06 05/05/25 14:06 05/05/25 14:06 05/05/25 14:06 05/05/25 14:06
Last Documented Vital Signs
Temp Pulse Resp BP Pulse Ox
98 F 98 26 122/88 96
05/05/25 14:10 05/05/25 18:00 05/05/25 18:00 05/05/25 18:00 05/05/25 18:05
MDM/Problems Addressed
Differential Diagnosis Includes:
Patient with a comminuted proximal left humerus fracture. Small subdural. CT was done because of mechanism and Plavix. Rib fracture noted on humerus x-ray. Chest x-ray without pneumothorax. Patient is remained stable throughout her ER stay.
Difficulty with transfer via [facility] ground. Will be sent by helicopter. Discussed with accepting team at [place]
*Radiology
Radiology exam reviewed: radiology read reviewed (Subdural. Proximal humerus fracture. Fourth rib fracture.)
*Pulse Oximetry
SaO2: 96
Oxygen Mode of Delivery: Room air
Patient hypoxic: no
*Critical Care Note
Total Time (30-74mins, 75-104mins- exclusive of procedures): 45
Data Reviewed
Review of Other/Old Records Reveals: Labs, Records and Testing
Update Note
Update Note:
1805... Patient was accepted to [place] [facility]. A bed is available. Transport is delayed. Initially we were told 1844. Now 2129. Feel this requires more emergent transfer and therefore will be sent by helicopter
ED Attending Note
-
Portions of this chart may have been created with voice recognition software.� Occasional wrong word or��sound alike� substitutions may have occurred due to the inherent limitations of voice recognition software.
Discharge Plan
Departure
Patient Disposition: Acute Care Hospital
Date of Disposition: 05/05/25
Time of Disposition: 18:03
Discharge Problem:
Subdural hematoma, Comminuted proximal left humerus fractur, Left fourth rib fracture
Prescriptions:
No Action
pantoprazole 40 mg tablet,delayed release (DR/EC)
40 mg PO DAILY
lidocaine 4 % Adhesive Patch,Medicated
1 patch TOPICAL DAILYPRN PRN (Reason: back pain)
tramadol 50 mg tablet
50 mg PO Q8HPRN PRN (Reason: pain)
Rx Instructions:
08/25/24: filled tramadol 50mg tablets #15/5 day supply on 08/23/24-[facility]
amlodipine 10 mg Tablet
10 mg PO DAILY
Align (B.infantis) 4 mg Capsule
4 mg PO DAILY
rosuvastatin 40 mg Tablet
40 mg PO QPM Qty: 30 0RF
cyanocobalamin (vitamin B-12) 1,000 mcg Tablet
1,000 mcg PO DAILY Qty: 30 0RF
clopidogrel 75 mg tablet
75 mg PO DAILY Qty: 30 0RF
aspirin 81 mg Tablet,Delayed Release (Dr/Ec)
81 mg PO DAILY Qty: 30 0RF
levothyroxine 50 mcg Tablet
50 mcg PO DAILY@0600 Qty: 30 0RF
Referrals:
Jamison Walsh Jr., DO [Family Provider, Internal Medicine]
Hospital Transfer
Other hospital: [facility]
I certify that the patient requires transfer: Yes
Discussed case with accepting physician: trauma
Reason for transfer: higher level of care
Interventions
Interventions:
*Risk Screen - Suicide Last Done: 05/05/25 14:10
*Neglect/Abuse Screening Last Done: 05/05/25 14:10
*ED COVID-19 Vaccine History Last Done: 05/05/25 16:26
*ED Influenza Vaccine History Last Done: 05/05/25 16:26
*Nursing Disposition Last Done: 05/05/25 18:08
ED-Musculoskeletal Assessment Last Done: 05/05/25 16:25
ED- Neurological Assessment Last Done: 05/05/25 16:25
ED-Skin Assessment Last Done: 05/05/25 16:25
Discharge Date and Time
Print Language: BAHRAINI
[2025-05-05] MEDS: ATIVAN 0.5 MG PO (18:56)
== END 2025-05-05 19:26 | disposition short-term general hospital (02) ==
LOC: EMR 14:03
PROVIDERS: EMERGENCY PHYSICIAN Emergency Medicine; FAMILY PHYSICIAN Family Medicine
DX: S22.32XA Fracture of one rib, left side, initial encounter for closed fracture (principal); S42.202A Unspecified fracture of upper end of left humerus, initial encounter for closed fracture; S06.5XAA Traumatic subdural hemorrhage with loss of consciousness status unknown, initial encounter; S40.022A Contusion of left upper arm, initial encounter; W01.0XXA Fall on same level from slipping, tripping and stumbling without subsequent striking against object, initial encounter; E78.00 Pure hypercholesterolemia, unspecified; E03.9 Hypothyroidism, unspecified; K21.9 Gastro-esophageal reflux disease without esophagitis; Z79.02 Long term (current) use of antithrombotics/antiplatelets; Z86.73 Personal history of transient ischemic attack (TIA), and cerebral infarction without residual deficits; Z90.49 Acquired absence of other specified parts of digestive tract
CPT/HCPCS: 99291; 70450; 71045; 72125; 73030; 80048; 85025

== ENCOUNTER → 2025-05-12 09:25 | Outpatient (REF) | payer MEDICARE, SELFPAY ==
[2025-05-12 11:48] LABS: Hematocrit 29.3 % (37.0-47.0); Hemoglobin 9.5 g/dL (12.0-16.0); Mean Corp Hgb Conc. 32.4 g/dL (33.0-37.0); Mean Corpuscular Volume 92.4 fL (81.0-99.0); Platelet Count 163 10^3/uL (130-400); Red Cell Dist. Width 15.1 % (11.5-14.5)
[2025-05-12 12:04] LABS: Blood Urea Nitrogen 17 mg/dl (7-17); Calcium 8.3 mg/dl (8.4-10.2); Carbon Dioxide 30 mmol/L (22-30); Chloride 101 mmol/L (98-107); Glucose 120 mg/dl (70-99); Potassium 3.4 mmol/L (3.5-5.1); Sodium 136 mmol/L (135-145); eGFR > 60.00
== END ==
LOC: OLABP 09:25
PROVIDERS: ATTENDING PHYSICIAN Family Medicine
DX: Z86.73 Personal history of transient ischemic attack (TIA), and cerebral infarction without residual deficits (principal); S06.5XAD Traumatic subdural hemorrhage with loss of consciousness status unknown, subsequent encounter; E78.00 Pure hypercholesterolemia, unspecified; F41.9 Anxiety disorder, unspecified; G31.84 Mild cognitive impairment of uncertain or unknown etiology; J96.01 Acute respiratory failure with hypoxia; K21.00 Gastro-esophageal reflux disease with esophagitis, without bleeding; N30.01 Acute cystitis with hematuria; S22.32XD Fracture of one rib, left side, subsequent encounter for fracture with routine healing; S42.202D Unspecified fracture of upper end of left humerus, subsequent encounter for fracture with routine healing
CPT/HCPCS: 36415; 80048; 85027

== ENCOUNTER → 2025-05-19 11:21 | Outpatient (REF) | payer OTHER, MEDICARE, SELFPAY ==
[2025-05-19 12:16] LABS: Hematocrit 32.7 % (37.0-47.0); Hemoglobin 9.8 g/dL (12.0-16.0); Mean Corp Hgb Conc. 30.0 g/dL (33.0-37.0); Mean Corpuscular Volume 95.6 fL (81.0-99.0); Nucleated Red Blood Cells % 0 %; Platelet Count 239 10^3/uL (130-400); Red Cell Dist. Width 16.6 % (11.5-14.5)
[2025-05-19 12:24] LABS: Blood Urea Nitrogen 16 mg/dl (7-17); Calcium 8.1 mg/dl (8.4-10.2); Carbon Dioxide 26 mmol/L (22-30); Chloride 104 mmol/L (98-107); Glucose 99 mg/dl (70-99); Potassium 4.0 mmol/L (3.5-5.1); Sodium 136 mmol/L (135-145); eGFR > 60.00
== END ==
LOC: OLABP 11:21
PROVIDERS: ATTENDING PHYSICIAN Family Medicine
DX: S06.5XAD Traumatic subdural hemorrhage with loss of consciousness status unknown, subsequent encounter (principal); E78.00 Pure hypercholesterolemia, unspecified; F41.9 Anxiety disorder, unspecified; G31.84 Mild cognitive impairment of uncertain or unknown etiology; J96.01 Acute respiratory failure with hypoxia; K21.00 Gastro-esophageal reflux disease with esophagitis, without bleeding; N30.01 Acute cystitis with hematuria; S22.32XD Fracture of one rib, left side, subsequent encounter for fracture with routine healing; S42.202D Unspecified fracture of upper end of left humerus, subsequent encounter for fracture with routine healing; Z86.73 Personal history of transient ischemic attack (TIA), and cerebral infarction without residual deficits
CPT/HCPCS: 36415; 80048; 85025